=== PATIENT | female | born 1960 | race Caucasian/White ===

== ENCOUNTER 2017-12-05 14:17 | Outpatient (CLI) | payer BC, SELFPAY ==
[2017-12-05 15:42] LABS: Lithium 1.09 mmol/L (0.60-1.20)
[2017-12-05 21:22] LABS: T3,Free 2.3 pg/ml (2.8-5.3)
== END 2017-12-05 14:18 ==
PROVIDERS: PCP Family Medicine; Visit Provider Family Medicine
DX: F31.9 Bipolar disorder, unspecified (principal); E03.9 Hypothyroidism, unspecified; Z51.81 Encounter for therapeutic drug level monitoring
CPT/HCPCS: 36415; 80178; 84481

== ENCOUNTER 2018-04-17 00:47 | Outpatient (CLI) | payer BC, SELFPAY ==
[2018-04-17 12:38] LABS: Lithium 1.07 mmol/L (0.60-1.20)
== END 2018-04-17 01:07 ==
PROVIDERS: PCP Family Medicine; Visit Provider Family Medicine
DX: F31.9 Bipolar disorder, unspecified (principal); Z51.81 Encounter for therapeutic drug level monitoring; Z79.899 Other long term (current) drug therapy
CPT/HCPCS: 36415; 80178

== ENCOUNTER 2018-06-22 11:49 | Inpatient (IN) | payer BC, SELFPAY ==
[2018-06-22] VITALS (17 sets, daily range): BP systolic 149–199; BP diastolic 74–127; PULSE 52–89; RESP 11–35; TEMP 36.5–37.2; O2SAT 95–100
--- NOTE | 2018-06-22 12:41 | ED.GENADUL_ITS ---
Discharge Plan Disposition Patient Disposition: [facility] INPATIENT Condition: Fair Discharge Details Chief Complaint: AMS/LOC Clinical Impression: Speech problem, Altered mental status Reason For Visit: trouble talking 24 hours Primary Care Provider: Norberto Mcnair ED Provider: Scott Coleman [place] Meds and New Rx's Prescriptions: No Action Otezla 30 mg tablet 30 mg PO BID RF: 0 amiloride 5 mg tablet 5 mg PO DAILY Qty: 90 RF: 3 clonazepam 0.5 mg tablet 0.5 mg PO HS Qty: 30 RF: 2 indomethacin 50 mg capsule 50 mg PO TID PRN (Reason: gout attack) Qty: 30 RF: 0 oxybutynin chloride 10 mg tablet extended release 24hr 10 mg PO DAILY Qty: 90 RF: 4 cyanocobalamin (vitamin B-12) [Vitamin B-12] 1,000 MCG tablet extended release 1,000 mcg PO 3X/WEEK Qty: 36 RF: 4 red yeast rice 600 MG tablet 1 tab PO BID RF: 0 celecoxib [Celebrex] 100 MG capsule 100 mg PO BID Qty: 180 RF: 0 senna 8.6 MG capsule 1 tab-cap PO BID PRNRF: 0 docusate sodium [Colace] 100 MG capsule 1 cap PO DAILY PRNRF: 0 ibuprofen [Motrin IB] 200 MG tablet 3 tab PO TID PRNRF: 0 triamcinolone acetonide 15 GM cream Topical BID Qty: 30 RF: 3 fluocinonide 60 GM ointment Topical BID Qty: 60 RF: 4 ziprasidone HCl 20 MG capsule 20 mg PO DAILY Qty: 90 RF: 4 mirtazapine 7.5 MG tablet 2 tab PO HS Qty: 180 RF: 4 levothyroxine 175 MCG tablet 175 mcg PO as directed Qty: 90 RF: 3 lithium carbonate 600 MG capsule 600 mg PO DAILY Qty: 90 RF: 4 lithium carbonate 300 MG capsule 300 mg PO DAILY Qty: 90 RF: 4 levothyroxine 200 MCG tablet 200 mcg PO As Dirrected Qty: 36 RF: 4 ranitidine HCl 150 MG capsule 150 mg PO BID Qty: 180 RF: 4 venlafaxine 75 MG capsule,extended release 24hr 75 mg PO DAILY Qty: 90 RF: 3 venlafaxine 150 MG capsule,extended release 24hr 150 mg PO DAILY Qty: 90 RF: 4 calcitriol [Rocaltrol] 0.25 mcg capsule 0.25 mcg PO 3 x wkly Qty: 12 RF: 4 methylphenidate HCl 20 mg tablet 20 mg PO DAILY MDD 20 mg Qty: 30 RF: 0 Medical Decision Making Patient presenting with complaints of speech problem and confusion. Currently in the ED she is nonfocal, seems a little slow, is not completely fluent with speech but does not have clear-cut a aphasia or dysarthria. I have given her a NIH score of 4. She was not able to answer both questions and got her age wrong. She has slight weakness in both legs and drifts but does not hit the bed. She has mild speech difficulty. I do not really find anything focal. Workup initiated including head CT for stroke protocol, EKG, laboratory studies including ammonia, TSH, lithium level. Phone call to discuss with Dr. Manley placed. Patient's CT head is negative. Laboratory studies are for the most part unremarkable. CBC is normal. Chemistries are unremarkable. Creatinine slightly up at 1.24. Ammonia is negative. Troponin is negative. TSH is a little low. Urinalysis negative for infection. [place] a little high at 1.43 with high normal being 1.2. Case is discussed with neurology. Discussed presentation, findings, plan which she is in agreement with. Patient given full dose aspirin with negative head CT. CTA of the head and neck ordered to evaluate for possible spasm. Will need admission for MRI of the brain and ECHO of the heart. Case discussed with hospitalist. Will obtain CTA of head and neck here and hold for results prior to admitting. CTA is negative for any visualized disease. Patient has remained stable and unchanged here. Patient admitted to telemetry bed for further workup of symptoms. Lab Data Lab results reviewed: Yes I reviewed the patient's lab results. ECG Data Attestation: I personally reviewed and interpreted this ECG (s) as follows: Prior ECG tracings: not available for review Interpretation: Sinus bradycardia at 58. Normal axis and intervals. Inverted T waves in [address] No acute ST elevation or depression noted elsewhere. HPI General Mode of arrival: ambulatory . Date/Time Provider Initiated Documentation: 06/22/18 12:11 . Limitations to Documentation: no limitations . Information obtained by: patient . HPI Narrative: Patient presents to the ED with complaints of difficulty speaking. She noticed she was having trouble with her words yesterday. She also has felt a little more confused than usual. Symptoms have been intermittent. Today at work she was having difficulty typing because the words that were going up on the screen were not the words that she was trying to get out. This is what is been going on with her speech as well. She has not noticed any headache, visual change, weakness, numbness, dizziness, gait disturbance. She has had some left upper extremity pain that limits her range of motion for the last few weeks. There is no known trauma related with this. It has been present for at least 2-3 weeks now. She has no fever, chest pain, cough. She had a coworker bring her here for evaluation for the speech problems. Related Data Home Medications Medication Instructions Recorded Confirmed cyanocobalamin (vitamin B-12) 1,000 mcg PO 3X/WEEK #36 08/21/12 06/22/18 [B-12] red yeast rice 1 tab PO BID 08/21/12 06/22/18 celecoxib [Celebrex] 100 mg PO BID #180 tab-cap 07/21/13 06/22/18 senna 1 tab-cap PO BID PRN tab-cap 03/06/15 06/22/18 docusate sodium [Colace] 1 cap PO DAILY PRN 03/07/15 06/22/18 ibuprofen [Motrin IB] 3 tab PO TID PRN 06/07/15 06/22/18 triamcinolone acetonide 0 TOPICAL BID #30 g 09/07/15 05/12/18 fluocinonide 0 TOPICAL BID #60 g 11/28/15 05/12/18 ziprasidone HCl 20 mg PO DAILY #90 cap 07/25/17 06/22/18 mirtazapine 2 tab PO HS #180 tab 07/29/17 06/22/18 levothyroxine 175 mcg PO as directed #90 tab-cap 09/19/17 06/22/18 levothyroxine 200 mcg PO As Dirrected #36 tab-cap 10/03/17 06/22/18 lithium carbonate 300 mg PO DAILY #90 tab-cap 10/03/17 06/22/18 lithium carbonate 600 mg PO DAILY #90 cap 10/03/17 06/22/18 ranitidine HCl 150 mg PO BID #180 tab-cap 10/03/17 06/22/18 venlafaxine 75 mg PO DAILY #90 tab-cap 11/19/17 06/22/18 venlafaxine 150 mg PO DAILY #90 tab-cap 11/19/17 06/22/18 indomethacin 50 mg capsule 50 mg PO TID PRN #30 cap 01/01/18 06/22/18 oxybutynin chloride ER 10 mg 10 mg PO DAILY #90 tab 01/01/18 06/22/18 tablet,extended release 24 hr calcitriol 0.25 mcg capsule 0.25 mcg PO 3 x wkly #12 tab-cap 03/19/18 06/22/18 amiloride 5 mg tablet 5 mg PO DAILY #90 tab-cap 05/12/18 06/22/18 apremilast 30 mg tablet 30 mg PO BID 05/12/18 06/22/18 clonazepam 0.5 mg tablet 0.5 mg PO HS #30 tab-cap 05/12/18 06/22/18 methylphenidate 20 mg tablet 20 mg PO DAILY #30 tab-cap MDD 20 05/25/18 06/22/18 mg Previous Rx's Medication Instructions Recorded ziprasidone HCl 20 mg PO DAILY #90 cap 07/25/17 mirtazapine 2 tab PO HS #180 tab 07/29/17 levothyroxine 175 mcg PO as directed #90 tab-cap 09/19/17 levothyroxine 200 mcg PO As Dirrected #36 tab-cap 10/03/17 lithium carbonate 300 mg PO DAILY #90 tab-cap 10/03/17 lithium carbonate 600 mg PO DAILY #90 cap 10/03/17 ranitidine HCl 150 mg PO BID #180 tab-cap 10/03/17 venlafaxine 75 mg PO DAILY #90 tab-cap 11/19/17 venlafaxine 150 mg PO DAILY #90 tab-cap 11/19/17 indomethacin 50 mg capsule 50 mg PO TID PRN #30 cap 01/01/18 oxybutynin chloride ER 10 mg 10 mg PO DAILY #90 tab 01/01/18 tablet,extended release 24 hr calcitriol 0.25 mcg capsule 0.25 mcg PO 3 x wkly #12 tab-cap 03/19/18 amiloride 5 mg tablet 5 mg PO DAILY #90 tab-cap 05/12/18 clonazepam 0.5 mg tablet 0.5 mg PO HS #30 tab-cap 05/12/18 methylphenidate 20 mg tablet 20 mg PO DAILY #30 tab-cap MDD 20 05/25/18 mg Allergies Allergy/AdvReac Type Severity Reaction Status Date / Time Cephalosporins Allergy Unknown Unverified 06/22/18 13:24 haloperidol Allergy Unknown Unverified 06/22/18 13:24 indomethacin AdvReac Intermediate dizziness Unverified 06/22/18 13:24 quetiapine AdvReac Intermediate RLS Unverified 06/22/18 13:24 Butyrophenones AdvReac Unknown Unverified 06/22/18 13:24 thioridazine AdvReac Unknown Unverified 06/22/18 13:24 General Stated Complaint: AMS/LOC SONJA: 2 Review of Systems Constitutional Denies fever(s), Denies headache(s), Denies lethargy and Denies weakness Eyes Denies change in vision, Denies loss of vision and Denies eye pain ENT Denies vertigo, Denies dizziness, Denies otalgia, Denies facial pain, Denies headache(s) and Denies neck pain Cardiovascular Denies chest pain, Denies diaphoresis, Denies syncope, Reports leg edema and Denies dyspnea Respiratory Denies chest congestion, Denies cough and Denies dyspnea Gastrointestinal Denies abdominal pain, Denies diarrhea, Denies nausea and Denies vomiting Genitourinary Denies dysuria and Denies pelvic pain Musculoskeletal Denies abnormal gait, Denies back pain, Denies neck pain, Denies numbness and Denies tingling Integumentary/Breasts Denies rash Neurologic Denies abnormal movements, Reports abnormal speech, Denies abnormal gait, Reports confusion, Denies vertigo, Denies dizziness, Denies syncope, Denies headache(s), Denies lack of coordination, Denies focal weakness, Denies loss of vision, Denies numbness, Denies other visual disturbances, Denies sensory deficit, Denies tingling, Denies paresthesias and Denies weakness Psychiatric Reports confusion [facility] Medical History Venous insufficiency of both lower extremities (Chronic) Spinal stenosis (Chronic) Psoriasis (Chronic 03/13/17) Obesity (Chronic) Hypothyroidism (acquired) (Chronic) Hyperlipidemia (Chronic 12/02/12) Hiatal hernia (Chronic) Gout (Chronic 02/17/13) Essential hypertension (Chronic 02/17/13) Chronic renal impairment (Chronic 02/17/13) Bipolar I disorder (Chronic) Surgical History Abdominal hysterectomy (~2002) Arthroplasty of knee Bilateral salpingectomy with oophorectomy (~2002) Cholecystectomy Dilation and curettage EXOSTECTOMY MASTOIDECTOMY Open Carpal Tunnel release SALIVARY SURGERY VOCAL CORD SURGERY Family History Mother Diabetes Essential hypertension Depression Heart disease Hyperlipidemia Stroke Father Essential hypertension Heart disease Hyperlipidemia Sister Depression Brother Depression Brother No problems noted. Social History Smoking/Tobacco Use Status: Former Tobacco Use Alcohol Intake: current Alcohol Intake frequency: 0-2 drinks per day Alcohol type: beer Drug use: Never Substance use type: does not use Household members: other Details: SELF Pets and animals: Yes Pets and animals: dog(s) Frequency: 1-2 times per week Lian/Christianity: [employer] Special lian needs: No Do you feel safe at home: Yes Do you feel safe in your relationship?: Yes Exam Const General: cooperative, comfortable and no acute distress Orientation: alert and oriented x3 HENMT Head: normocephalic and atraumatic Ears: external ears normal Face and sinus: normal facial exam Eyes Pupils: PERRL EOM: EOM intact bilaterally Neck Neck: trachea midline and supple Resp Effort & Inspection: normal respiratory effort Auscultation: clear to auscultation bilaterally Cardio Rate: regular rate Rhythm: regular rhythm Heart Sounds: S1 normal and S2 normal GI Inspection: normal to inspection Palpation: soft, not firm and nontender Skin Rashes: no rashes Neuro General: alert, oriented x3, tone normal, moves all extremities, no focal motor deficits and CN's II-XI intact bilaterally Speech: abnormal speech (some word finding problem; not completely fluent) Gait: other (limps) Motor: tremor (mild hand tremor bilaterally) Sensory Exam: no sensory deficits noted Coordination: [id number] test normal and [id number] test normal Extrem General: no calf tenderness and pedal edema Course Vital Signs Temperature 97.7 F 06/22/18 12:09 Temperature 97.7 F 06/22/18 12:09 Temperature Source Temporal Artery Scan 06/22/18 12:09 Oxygen Delivery Method Room Air 06/22/18 12:09 Oxygen Flow Rate 0 06/22/18 12:09 Pain Level 6 06/22/18 12:09
--- NOTE | 2018-06-22 12:43 | DI.CT_ITS ---
SYMPTOMS/DIAGNOSIS: TROUBLE WITH SPEECH CT BRAIN: Noncontrast. No priors. There is normal roberts/white matter differentiation. The ventricles and sulci are consistent with the patient's age. No acute infarct, midline shift, mass effect or hemorrhage is seen. The ventricles are intact. The basilar cisterns are patent. The visualized paranasal sinuses are clear. The mastoid air cells are well pneumatized. There do appear to be post surgical changes involving the right mastoid air cells. The calvarium is intact. IMPRESSION: No acute intracranial process. Follow up as clinically appropriate. The findings were discussed with Dr. Coleman of the emergency department on the date of the examination.
[2018-06-22 13:40] LABS: Bilirubin Negative (Negative); Blood Negative (Negative); Clarity Clear; Glucose Negative (Negative); Ketones Negative (Negative); Leukocyte Esterase Negative (Negative); Nitrite Negative (Negative); Urobilinogen 0.2 EU/dL (Up TO 0.2)
--- NOTE | 2018-06-22 13:45 | DI.CT_ITS ---
SYMPTOMS/DIAGNOSIS: SPEECH PROBLEMS CTA OF THE HEAD AND NECK: CT angiography was performed with multi slice acquisition and multi planar and 3D reconstruction. CT ANGIOGRAPHY OF THE NECK: The visualized thoracic aorta is unremarkable. The common carotid arteries are unremarkable. No evidence of occlusion, dissection or significant stenosis. There is mild atherosclerosis seen at the proximal internal carotid arteries bilaterally. No occlusion, dissection or significant stenosis is visualized. The external carotid arteries are unremarkable without evidence of occlusion or significant stenosis. The vertebral arteries are unremarkable. No evidence of occlusion or significant stenosis is seen. No acute abnormality is seen in the soft tissues. There are moderate degenerative changes seen throughout the cervical spine with varying degrees of disc space, endplate sclerosis and osteophytosis. The visualized paranasal sinuses are clear. IMPRESSION: No acute cervical arterial abnormality. CT ANGIOGRAPHY OF THE HEAD: There is mild atherosclerosis seen in the cavernous portion of the internal carotid arteries but no evidence of occlusion, stenosis or aneurysm is seen. The anterior cerebral arteries are unremarkable without evidence of aneurysm, occlusion or significant stenosis. The middle cerebral arteries are unremarkable without evidence of aneurysm, occlusion or significant stenosis. The posterior cerebral arteries are unremarkable without evidence of occlusion, aneurysm or significant stenosis. The distal vertebral arteries and basilar artery are unremarkable without evidence of dissection, occlusion, aneurysm or significant stenosis. IMPRESSION: No evidence of arterial abnormality in the brain. The findings were discussed with the emergency department on the date of the examination.
[2018-06-22] MEDS: Normal Saline 1,000 ML 1000 ML IV (13:50)
[2018-06-22 14:03] LABS: Abs Immature Grans 0.01 k/cumm (0.0-0.09); Absolute Basophil Count 0.01 k/cumm (0.0-0.2); Absolute Eosinophil Count 0.18 k/cumm (0.0-0.7); Absolute Lymphocyte Count 0.92 k/cumm (1.2-3.4); Absolute Monocyte Count 0.28 k/cumm (0.11-0.7); Absolute Neutrophil Count 4.63 k/cumm (1.2-6.7); Basophils % 0.2; HCT 36.5 % (36.0-46.0); HGB 12.2 g/dL (12.0-15.5); Immature Grans % 0.2; Lymphocytes % 15.3; Mean Corp. HGB Concentration 33.4 g/dL (32.0-36.0); Mean Corpuscular Volume 92.6 fL (80-95); Mean Platelet Volume 10.2 fL (8.0-11.0); Monocytes % 4.6; Neutrophils % 76.7; Platelet Count 205 x1000/uL (130-400); RBC 3.94 m/cumm (4.00-5.20); RBC Distribution Width 13.6 % (11.7-14.6); White Blood Cell Count 6.03 k/cumm (4.4-10.8)
[2018-06-22 14:06] LABS: Bacteria Rare HPF (Negative); C & S Indicated? No; Casts Negative LPF (Negative); Crystals Negative HPF (Negative); Epithelial Cells Many HPF (Negative); Mucus Negative (Negative); RBC Negative (0-2)
[2018-06-22] MEDS: Aspirin 81 MG CHEW 324 MG CH (14:07)
[2018-06-22 14:21] LABS: Ammonia < 10 umol/L (11-32)
[2018-06-22 14:45] LABS: ALT 27 U/L (12-78); AST 22 U/L (15-37); Albumin 3.2 g/dL (3.4-5.0); Alkaline Phosphatase 120 U/L (46-116); Anion Gap 4.8 mmol/L (3-11); BUN 16 mg/dL (7-18); Bilirubin, Total 0.3 mg/dL (0.2-1.0); CO2 26.2 mmol/L (21.0-32.0); CREATININE 1.24 mg/dL (0.55-1.02); Calcium 9.1 mg/dL (8.5-10.1); Chloride 106 mmol/L (98-107); Estimated GFR 44.27 (mL/min/1.73m2); Glucose 100 mg/dL (70-100); Magnesium 2.2 mg/dL (1.8-2.4); Potassium 4.2 mmol/L (3.5-5.1); Sodium 137 mmol/L (136-145); TSH 0.28 uIU/mL (0.358-3.74); Total Protein 7.1 g/dL (6.4-8.2)
[2018-06-22 14:48] LABS: Troponin I < 0.02 ng/mL (0.00-0.06)
--- NOTE | 2018-06-22 15:13 | PDOC.ERCMPRO ---
Care Management Progress Note 06/22-Carmen requested assistance with calling her friends, Jo Ann [phone] Meka [phone]. Carmen wanted to let her friends know she was being admitted. This CM tried Alayna German but she was not at home. This CM then was able to reach out to Meka who was able to speak with Carmen on the phone.
[2018-06-22 15:18] LABS: Lithium 1.43 mmol/L (0.60-1.20)
[2018-06-22] MEDS: Omnipaque 350 MG/ML 100 ML BTL IV (15:38)
[2018-06-22] MEDS: Enoxaparin 40 MG/0.4 ML SYR SC (17:57)
--- NOTE | 2018-06-22 18:55 | W.PM.HP.N ---
Date of service: 06/22/18 Time of Service: 18:55 Assessment and Plan (1) Expressive aphasia: Current visit: Yes Status: Acute Symptoms of aphasia, with reported difficulty in expressing words either review of speech or by typing. Patient is also noted to be slightly altered from her normal mental status, and while she is very appropriate does have trouble with recalling such things as her age, birthdate, date and year. She also understands that this is not her norm. While there are no focal deficits, there is obvious concern for an acute CVA/TIA. Differential otherwise for her altered mental status is rather broad, and will be explored pending workup of patient's current symptoms. Ms. Portillo reports no daily aspirin use - will initiate once a day low-dose aspirin, as well as high potency statin therapy. CT of the head and CT angiogram of the head and neck are negative for any acute findings - will follow up with an MRI of the brain (unfortunately following admission it was announced that the MRI machine will be under service tomorrow and likely unavailable for imaging). Will allow for some degree of permissive hypertension. Check echocardiogram, and maintain on telemetry as well. We will also check a.m. hemoglobin A1c and fasting lipids. Although lithium level is mildly elevated, the patient's symptoms do not appear typical for lithium toxicity. Regardless, her lithium will be on hold with repeat levels in the morning. EKG was slightly abnormal, but with initial troponin undetectable. Will repeat troponin following admission, as well as tomorrow morning to completely rule out for an ACS with serial cardiac biomarkers. Neurology consulted, and input is appreciated. (2) Bipolar I disorder: Current visit: Yes Status: Chronic [place] on hold as above, but will continue the remainder of the patient's psychiatric regimen, including mirtazapine, clonazepam, venlafaxine, and Ziprasidone. Monitor lithium levels closely, and reinitiate when appropriate. (3) Essential hypertension: Current visit: Yes Status: Chronic (4) Hyperlipidemia: Current visit: Yes Status: Chronic (5) Hypothyroidism (acquired): Current visit: Yes Status: Chronic TSH currently low, with prior value grossly elevated in October 2017. Will decrease dose, and recommend repeat TSH in the near future as an outpatient. (6) DVT prophylaxis: Current visit: Yes Status: Acute SC Lovenox. History of Present Illness Chief Complaint: Aphasia Narrative: Very pleasant 58-year-old woman with past medical history significant for HTN, dyslipidemia, and obesity, being admitted from [facility] Emergency Department on 06/22/2018 with complaints of aphasia. Ms. Portillo has a prior history of HTN, dyslipidemia, obesity, gout, and psoriasis. She also has a prior history of hypothyroidism, with a current TSH that appears to be low, as well as bipolar disorder chronically maintained on lithium, spinal stenosis, OAB, and venous insufficiency. The patient presented to the ED today with complaints of new onset aphasia. She reports waking up yesterday feeling tired, and stayed in bed for a few more hours after that which is unusual for her. She reportedly did not 'feel good' for the remainder of the day, but was not really sure of the reason. However, by the time she went to bed she was feeling reasonably well, and awoke this morning feeling okay. 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 However she then noticed that she could not say words that she was thinking of correctly, and states that others noted the same. She also noticed incorrect typing, reported as being unable to type what she was thinking in a correct manner. This prompted her to present to the emergency department for further evaluation. Workup in the ED was fairly unremarkable, with essentially normal lab work with the exception of a mildly low TSH of 0.28, and a minimal elevation in lithium levels at 1.43. CT of the head, followed by CT angiogram of the head and neck were both interpreted as without evidence of acute abnormality. EKG showed NSR with TW inversions in I/AVL and PRWP, but also with a negative troponin. Mrs. Castillo was also noted to be slightly confused although very appropriate, unable to verify the exact date, her birthdate, or the year. Suspicion was for potential CVA/TIA, and the patient was referred for admission for further evaluation and treatment. Review of Systems Review of Systems All systems reviewed & are unremarkable except as noted in HPI and below and Unobtainable due to (Worsening tremors over the last 2 weeks) [facility] Medical History Venous insufficiency of both lower extremities (Chronic) Spinal stenosis (Chronic) Psoriasis (Chronic 03/13/17) Obesity (Chronic) Hypothyroidism (acquired) (Chronic) Hyperlipidemia (Chronic 12/02/12) Hiatal hernia (Chronic) Gout (Chronic 02/17/13) Essential hypertension (Chronic 02/17/13) Chronic renal impairment (Chronic 02/17/13) Bipolar I disorder (Chronic) Surgical History Abdominal hysterectomy (~2002) Arthroplasty of knee Bilateral salpingectomy with oophorectomy (~2002) Cholecystectomy Dilation and curettage EXOSTECTOMY MASTOIDECTOMY Open Carpal Tunnel release SALIVARY SURGERY VOCAL CORD SURGERY Family History Mother Diabetes Essential hypertension Depression Heart disease Hyperlipidemia Stroke Father Essential hypertension Heart disease Hyperlipidemia Sister Depression Brother Depression Brother No problems noted. Social History Smoking/Tobacco Use Status: Former Tobacco Use Alcohol Intake: current Alcohol Intake frequency: 0-2 drinks per day Alcohol type: beer Drug use: Never Substance use type: does not use Household members: other Details: SELF Pets and animals: Yes Pets and animals: dog(s) Frequency: 1-2 times per week Lian/Anabaptism: Cheondoism Special lian needs: No Do you feel safe at home: Yes Do you feel safe in your relationship?: Yes Meds Home Medications Medication Instructions Recorded Confirmed Type cyanocobalamin (vitamin B-12) 1,000 mcg PO 3X/WEEK #36 08/21/12 06/22/18 History [B-12] red yeast rice 1 tab PO BID 08/21/12 06/22/18 History celecoxib [Celebrex] 100 mg PO BID #180 tab-cap 07/21/13 06/22/18 History senna 1 tab-cap PO BID PRN tab-cap 03/06/15 06/22/18 History docusate sodium [Colace] 1 cap PO DAILY PRN 03/07/15 06/22/18 History ibuprofen [Motrin IB] 3 tab PO TID PRN 06/07/15 06/22/18 History triamcinolone acetonide 0 TOPICAL BID #30 g 09/07/15 05/12/18 History fluocinonide 0 TOPICAL BID #60 g 11/28/15 05/12/18 History ziprasidone HCl 20 mg PO DAILY #90 cap 07/25/17 06/22/18 Rx mirtazapine 2 tab PO HS #180 tab 07/29/17 06/22/18 Rx levothyroxine 175 mcg PO as directed #90 tab-cap 09/19/17 06/22/18 Rx levothyroxine 200 mcg PO As Dirrected #36 tab-cap 10/03/17 06/22/18 Rx lithium carbonate 300 mg PO DAILY #90 tab-cap 10/03/17 06/22/18 Rx lithium carbonate 600 mg PO DAILY #90 cap 10/03/17 06/22/18 Rx ranitidine HCl 150 mg PO BID #180 tab-cap 10/03/17 06/22/18 Rx venlafaxine 75 mg PO DAILY #90 tab-cap 11/19/17 06/22/18 Rx venlafaxine 150 mg PO DAILY #90 tab-cap 11/19/17 06/22/18 Rx indomethacin 50 mg capsule 50 mg PO TID PRN #30 cap 01/01/18 06/22/18 Rx oxybutynin chloride ER 10 mg 10 mg PO DAILY #90 tab 01/01/18 06/22/18 Rx tablet,extended release 24 hr calcitriol 0.25 mcg capsule 0.25 mcg PO 3 x wkly #12 tab-cap 03/19/18 06/22/18 Rx amiloride 5 mg tablet 5 mg PO DAILY #90 tab-cap 05/12/18 06/22/18 Rx apremilast 30 mg tablet 30 mg PO BID 05/12/18 06/22/18 History clonazepam 0.5 mg tablet 0.5 mg PO HS #30 tab-cap 05/12/18 06/22/18 Rx methylphenidate 20 mg tablet 20 mg PO DAILY #30 tab-cap MDD 20 05/25/18 06/22/18 Rx mg Allergies Allergy/AdvReac Type Severity Reaction Status Date / Time Cephalosporins Allergy Unknown Unverified 06/22/18 13:24 haloperidol Allergy Unknown Unverified 06/22/18 13:24 indomethacin AdvReac Intermediate dizziness Unverified 06/22/18 13:24 quetiapine AdvReac Intermediate RLS Unverified 06/22/18 13:24 Butyrophenones AdvReac Unknown Unverified 06/22/18 13:24 thioridazine AdvReac Unknown Unverified 06/22/18 13:24 Exam Narrative Exam Narrative: General: Patient appears comfortable, AAOX2, NAD Neck: Supple CV: Regular, nontachycardic, S1S2, No rubs, murmurs, or gallops. Pulmonary: Clear to auscultation bilaterally, no crackles, wheezing, or rhonchi Abdomen: + Bowel Sounds, soft, nontender, nondistended Vascular: No lower extremity edema Neurologic: CN II-XII grossly intact. No focal deficits. Psych: Normal mood and affect. Results Imaging Additional studies: Exam(s) a CT:CT head - stroke protocol SYMPTOMS/DIAGNOSIS: TROUBLE WITH SPEECH CT BRAIN: Noncontrast. No priors. There is normal roberts/white matter differentiation. The ventricles and sulci are consistent with the patient's age. No acute infarct, midline shift, mass effect or hemorrhage is seen. The ventricles are intact. The basilar cisterns are patent. The visualized paranasal sinuses are clear. The mastoid air cells are well pneumatized. There do appear to be post surgical changes involving the right mastoid air cells. The calvarium is intact. IMPRESSION: No acute intracranial process. Follow up as clinically appropriate. Exam(s) a CT:CT brain & neck CTA SYMPTOMS/DIAGNOSIS: SPEECH PROBLEMS CTA OF THE HEAD AND NECK: CT angiography was performed with multi slice acquisition and multi planar and 3D reconstruction. CT ANGIOGRAPHY OF THE NECK: The visualized thoracic aorta is unremarkable. The common carotid arteries are unremarkable. No evidence of occlusion, dissection or significant stenosis. There is mild atherosclerosis seen at the proximal internal carotid arteries bilaterally. No occlusion, dissection or significant stenosis is visualized. The external carotid arteries are unremarkable without evidence of occlusion or significant stenosis. The vertebral arteries are unremarkable. No evidence of occlusion or significant stenosis is seen. No acute abnormality is seen in the soft tissues. There are moderate degenerative changes seen throughout the cervical spine with varying degrees of disc space, endplate sclerosis and osteophytosis. The visualized paranasal sinuses are clear. IMPRESSION: No acute cervical arterial abnormality. CT ANGIOGRAPHY OF THE HEAD: There is mild atherosclerosis seen in the cavernous portion of the internal carotid arteries but no evidence of occlusion, stenosis or aneurysm is seen. The anterior cerebral arteries are unremarkable without evidence of aneurysm, occlusion or significant stenosis. The middle cerebral arteries are unremarkable without evidence of aneurysm, occlusion or significant stenosis. The posterior cerebral arteries are unremarkable without evidence of occlusion, aneurysm or significant stenosis. The distal vertebral arteries and basilar artery are unremarkable without evidence of dissection, occlusion, aneurysm or significant stenosis. IMPRESSION: No evidence of arterial abnormality in the brain. Labs : 06/22/18 13:50 06/22/18 13:50 Laboratory Results - last 24 hr 06/22/18 06/22/18 06/22/18 13:35 13:50 13:50 WBC RBC Hgb Hct MCV MCH MCHC RDW Plt Count MPV Immature Gran % Neutrophils % Lymphocytes % Monocytes % Eosinophils % Basophils % Absolute Neutrophils Absolute Lymphocytes Absolute Monocytes Absolute Eosinophils Absolute Basophils Sodium 137 Potassium 4.2 Chloride 106 Carbon Dioxide 26.2 Anion Gap 4.8 BUN 16 Creatinine 1.24 H Estimated GFR/1.73 m2 44.27 Glucose 100 Calcium 9.1 Magnesium 2.2 Total Bilirubin 0.3 AST 22 ALT 27 Alkaline Phosphatase 120 H Ammonia < 10 L Troponin I < 0.02 Total Protein 7.1 Albumin 3.2 L TSH 0.28 L Urine Color Straw Urine Clarity Clear Urine pH 7.0 Ur Specific [place] 1.010 Urine Protein 30 H Urine Ketones Negative Urine Blood Negative Urine Nitrite Negative Urine Bilirubin Negative Urine Urobilinogen 0.2 Ur Leukocyte Esterase Negative Urine RBC Negative Urine WBC 3-5 Ur Epithelial Cells Many Urine Crystals Negative Urine Bacteria Rare Urine Casts Negative Urine Mucus Negative Ur Culture Indicated? No Urine Glucose Negative [place] 06/22/18 06/22/18 06/22/18 13:50 13:50 14:50 WBC 6.03 RBC 3.94 L Hgb 12.2 Hct 36.5 MCV 92.6 MCH 31.0 MCHC 33.4 RDW 13.6 Plt Count 205 MPV 10.2 Immature Gran % 0.2 Neutrophils % 76.7 Lymphocytes % 15.3 Monocytes % 4.6 Eosinophils % 3.0 Basophils % 0.2 Absolute Neutrophils 4.63 Absolute Lymphocytes 0.92 L Absolute Monocytes 0.28 Absolute Eosinophils 0.18 Absolute Basophils 0.01 Sodium Potassium Chloride Carbon Dioxide Anion Gap BUN Creatinine Estimated GFR/1.73 m2 Glucose Calcium Magnesium Total Bilirubin AST ALT Alkaline Phosphatase Ammonia Troponin I Total Protein Albumin TSH Urine Color Urine Clarity Urine pH Ur Specific [place] Urine Protein Urine Ketones Urine Blood Urine Nitrite Urine Bilirubin Urine Urobilinogen Ur Leukocyte Esterase Urine RBC Urine WBC Ur Epithelial Cells Urine Crystals Urine Bacteria Urine Casts Urine Mucus Ur Culture Indicated? Urine Glucose [place] Cancelled 1.43 H Last Vital Signs Temp 37.2 C 06/22/18 17:28 Pulse 56 L 06/22/18 17:28 Resp 17 06/22/18 17:28 BP 173/76 H 06/22/18 17:28 Pulse Ox 95 06/22/18 17:28
[2018-06-22] MEDS: Atorvastatin 40 MG TAB PO (20:12)
[2018-06-22 21:07] LABS: Troponin I < 0.02 ng/mL (0.00-0.06)
[2018-06-22] MEDS: clonazePAM 0.5 MG TAB PO (22:00)
[2018-06-22] MEDS: Calcitriol 0.25 MCG CAP PO (22:00)
[2018-06-22] MEDS: Mirtazapine 15 MG TAB PO (22:00)
[2018-06-23] MEDS: Acetaminophen 325 MG TAB PO ×3 (01:23→22:57)
[2018-06-23] MEDS: Levothyroxine 175 MCG TAB PO (06:01)
[2018-06-23 07:36] VITALS: PULSE 51
[2018-06-23 07:38] LABS: Abs Immature Grans 0.01 k/cumm (0.0-0.09); Absolute Basophil Count 0.01 k/cumm (0.0-0.2); Absolute Eosinophil Count 0.19 k/cumm (0.0-0.7); Absolute Lymphocyte Count 1.15 k/cumm (1.2-3.4); Absolute Monocyte Count 0.26 k/cumm (0.11-0.7); Absolute Neutrophil Count 4.39 k/cumm (1.2-6.7); Basophils % 0.2; Eosinophils % 3.2; HCT 37.8 % (36.0-46.0); HGB 12.4 g/dL (12.0-15.5); Immature Grans % 0.2; Lymphocytes % 19.1; Mean Corp. HGB Concentration 32.8 g/dL (32.0-36.0); Mean Corpuscular Hemoglobin 30.5 pg (27.0-33.0); Mean Corpuscular Volume 92.9 fL (80-95); Monocytes % 4.3; Platelet Count 215 x1000/uL (130-400); RBC 4.07 m/cumm (4.00-5.20); RBC Distribution Width 13.8 % (11.7-14.6); White Blood Cell Count 6.01 k/cumm (4.4-10.8)
[2018-06-23 07:53] VITALS: BP 158/85; BP 183/94; PULSE 54; RESP 18; TEMP 36.4; O2SAT 100
[2018-06-23 07:53] LABS: Anion Gap 8.8 mmol/L (3-11); BUN 17 mg/dL (7-18); CO2 24.2 mmol/L (21.0-32.0); CREATININE 1.27 mg/dL (0.55-1.02); Calcium 9.6 mg/dL (8.5-10.1); Chloride 108 mmol/L (98-107); Cholesterol 213 mg/dL (50-200); Estimated GFR 43.07 (mL/min/1.73m2); Glucose 109 mg/dL (70-100); HDL Cholesterol 54 mg/dL (40-60); LDL CHOLESTEROL 128 mg/dL (<100); Magnesium 2.1 mg/dL (1.8-2.4); Potassium 4.2 mmol/L (3.5-5.1); Sodium 141 mmol/L (136-145); Triglyceride 216 mg/dL (30-150); Troponin I 0.02 ng/mL (0.00-0.06)
--- NOTE | 2018-06-23 08:00 | PDOC.CMIN ---
- If Service Date Differs Date of service: 06/23/18 Time of Service: 08:00 Care Management Initial Assess REASON FOR HOSPITALIZATION:: Expressive aphasia PAST MEDICAL HISTORY/PAST SURGICAL HISTORY:: Venous insufficiency of both lower extremities (Chronic). Spinal stenosis (Chronic). Psoriasis (Chronic 03/13/17). Obesity (Chronic). Hypothyroidism (acquired) (Chronic). Hyperlipidemia (Chronic 12/02/12). Hiatal hernia (Chronic). Gout (Chronic 02/17/13). Essential hypertension (Chronic 02/17/13). Chronic renal impairment (Chronic 02/17/13). Bipolar I disorder (Chronic). Abdominal hysterectomy (~2002). Arthroplasty of knee. Bilateral salpingectomy with oophorectomy (~2002). Cholecystectomy. Dilation and curettage. EXOSTECTOMY. MASTOIDECTOMY. Open Carpal Tunnel release. SALIVARY SURGERY. VOCAL CORD SURGERY PREVIOUS FUNCTIONAL STATUS/SOCIAL/FAMILY SUPPORTS:: Carmen resides in an apartment in [place] with her dog Nat. She reports that she works for [employer] in [place] as the [employer] she enjoys. Carmen is independent at baseline, she states that she drives and manages ADL's. CURRENT FUNCTIONAL STATUS:: Currently Carmen is lying in bed watching TV when this marketing underwriter visits. She is pleasant and receptive to discussion. Carmen states that she is interested in taking a shower today. ADVANCE DIRECTIVES:: On file - Suly Kenny is agent, Alayna Morgan and Teresa Edward is alternate. Has patient been provided with information about the portal?: Yes Did the patient sign up for the portal?: No CODE STATUS:: Full Code INSURANCE COVERAGE / FINANCIAL ISSUES:: BCBS CURRENT HOME/COMMUNITY SERVICES/EQUIPMENT:: Currently Carmen has no services or medical equipment in the community. She does report that she sees Myesha Gusman for counseling in [place], and that Dr. Mcnair prescribes her medications. PRIMARY CARE PHYSICIAN:: Dr. Mcnair POTENTIAL DISCHARGE NEEDS:: F/U appointment with PCP PATIENT/FAMILY EDUCATION NEEDS:: Review DC instructions, any limitations, and ongoing DC planning discussion. Discuss 'Ask Me Three' ANTICIPATED BARRIERS TO DISCHARGE:: None identified at this time. TRANSPORTATION:: Via private vehicle with friend. PLAN:: Carmen will return home with no anticipated services once medically cleared. She will F/U with PCP and Myesha Gusman, counselor, at time of DC. Her friend will transport when ready.
[2018-06-23] MEDS: Aspirin E.C. 81 MG TABEC PO (08:06)
[2018-06-23] MEDS: Venlafaxine 37.5 MG CAPCR 75 MG PO (08:06)
[2018-06-23] MEDS: Ziprasidone 20 MG CAP PO (08:06)
[2018-06-23] MEDS: Venlafaxine 150 MG CAPCR PO (08:06)
[2018-06-23] MEDS: Oxybutynin-CR 5 MG TABCR 10 MG PO (08:06)
[2018-06-23] MEDS: Methylphenidate 10 MG TAB 20 MG PO (08:06)
[2018-06-23 08:22] LABS: Lithium 1.16 mmol/L (0.60-1.20)
--- NOTE | 2018-06-23 09:34 | INITIAL_ITS ---
- If Service Date Differs Date of service: 06/23/18 Time of Service: 08:00 Care Management Initial Assess REASON FOR HOSPITALIZATION:: Expressive aphasia PAST MEDICAL HISTORY/PAST SURGICAL HISTORY:: Venous insufficiency of both lower extremities (Chronic). Spinal stenosis (Chronic). Psoriasis (Chronic 03/13/17). Obesity (Chronic). Hypothyroidism (acquired) (Chronic). Hyperlipidemia (Chronic 12/02/12). Hiatal hernia (Chronic). Gout (Chronic 02/17/13). Essential hypertension (Chronic 02/17/13). Chronic renal impairment (Chronic 02/17/13). Bipolar I disorder (Chronic). Abdominal hysterectomy (~2002). Arthroplasty of knee. Bilateral salpingectomy with oophorectomy (~2002). Cholecystectomy. Dilation and curettage. EXOSTECTOMY. MASTOIDECTOMY. Open Carpal Tunnel release. SALIVARY SURGERY. VOCAL CORD SURGERY PREVIOUS FUNCTIONAL STATUS/SOCIAL/FAMILY SUPPORTS:: Carmen resides in an apartment in [place] with her dog Nat. She reports that she works for [employer] in [place] as the [employer] she enjoys. Carmen is independent at baseline, she states that she drives and manages ADL's. CURRENT FUNCTIONAL STATUS:: Currently Carmen is lying in bed watching TV when this telegraphic typewriter mechanic visits. She is pleasant and receptive to discussion. Carmen states that she is interested in taking a shower today. ADVANCE DIRECTIVES:: On file - Sulykarin Kenny is agent, Alayna Morgan and Teresa Edward is alternate. Has patient been provided with information about the portal?: Yes Did the patient sign up for the portal?: No CODE STATUS:: Full Code INSURANCE COVERAGE / FINANCIAL ISSUES:: BCBS CURRENT HOME/COMMUNITY SERVICES/EQUIPMENT:: Currently Carmen has no services or medical equipment in the community. She does report that she sees Myesha Gusman for counseling in [place], and that Dr. Mcnair prescribes her med ications. PRIMARY CARE PHYSICIAN:: Dr. Mcnair POTENTIAL DISCHARGE NEEDS:: F/U appointment with PCP PATIENT/FAMILY EDUCATION NEEDS:: Review DC instructions, any limitations, and ongoing DC planning discussion. Discuss 'Ask Me Three' ANTICIPATED BARRIERS TO DISCHARGE:: None identified at this time. TRANSPORTATION:: Via private vehicle with friend. PLAN:: Carmen will return home with no anticipated services once medically cleared. She will F/U with PCP and Myesha Gusman, counselor, at time of DC. Her friend will transport when ready.
[2018-06-23 11:30] VITALS: BP 150/58; PULSE 53; RESP 20; TEMP 36.4; O2SAT 98
--- NOTE | 2018-06-23 12:30 | MERGE_ITS ---
*[facility]* *[facility]* [address] [place] [address] Date of study: 06/23/2018 Transthoracic Echocardiography M-mode, complete 2D, complete spectral Doppler, and color Doppler *STUDY CONCLUSIONS* Summary: 1. Left ventricle: The cavity size was normal. Wall thickness was increased in a pattern of mild LVH. Systolic function was normal. The estimated ejection fraction was 55-60%. Wall motion was normal; there were no regional wall motion abnormalities. Doppler parameters are consistent with high ventricular filling pressure. 2. Aortic valve: Trileaflet; normal thickness leaflets. There was trivial regurgitation. 3. Aorta: There was localized, fixed, 0.4cm (thick), 0.7cm (L) atheromatous plaque in the proximal ascending aorta. 4. Mitral valve: There was mild regurgitation. 5. Right ventricle: The cavity size was normal. Wall thickness was normal. Systolic function was normal. Recommendations: Repeat echo in 6 months to re-assess atheroma. *PATIENT PRESENTATION* Height: 157.5cm ((62in) ) S/D Pressure: 158 / 85 Weight: 91.6kg ((201.6lb) ) BSA: 2.05m^2 Test start time: 12:45 PM. Test stop time: 01:35 PM. PERFORMING Unknown CONSULTING Norberto Mcnair Aydin A REFERRING Ky Cash PERFORMING [facility] CABLE SPLICING TECHNICIAN RT Davian (R)([place])NAVJOT *PROCEDURE DATA* Procedure information: The patient was identified by two identifiers. This study was interpreted by [facility]. Pertinent images and digital data are archived for permanent storage and are available for subsequent review. Comparison was made to the study of 2006. Study status: Routine. Transthoracic echocardiography. M-mode, complete 2D, complete spectral Doppler, and color Doppler. A Transthoracic Echocardiogram was performed. Scanning was performed from the parasternal, apical, subcostal, and suprasternal notch acoustic windows. Images were obtained using an [id number] cardiac ultrasound machine. Image quality was adequate. Study completion: The patient tolerated the procedure well. There were no complications. History: PMH: Altered mental status. *CARDIAC ANATOMY* Left ventricle: The cavity size was normal. Wall thickness was increased in a pattern of mild LVH. Systolic function was normal. The estimated ejection fraction was 55-60%. Wall motion was normal; there were no regional wall motion abnormalities. Findings consistent with diastolic dysfunction. Doppler parameters are consistent with high ventricular filling pressure. Aortic valve: Trileaflet; normal thickness leaflets. Mobility was not restricted. Doppler: Transvalvular velocity was within the normal range. There was no stenosis. There was trivial regurgitation. VTI ratio of LVOT to aortic valve: 0.73. Valve area (VTI): 2.5cm^2. Indexed valve area (VTI): 1.2cm^2/m^2. Peak velocity ratio of LVOT to aortic valve: 0.63. Valve area (Vmax): 2.1cm^2. Indexed valve area (Vmax): 1cm^2/m^2. Mean velocity ratio of LVOT to aortic valve: 0.53. Valve area (Vmean): 1.8cm^2. Indexed valve area (Vmean): 0.9cm^2/m^2. Mean gradient (S): 5.3mm Hg. Peak gradient (S): 10.2mm Hg. Aorta: There was localized, fixed, 0.4cm (thick), 0.7cm (L) atheromatous plaque in the proximal ascending aorta. Aortic root: The aortic root was normal in size. Ascending aorta: The ascending aorta was normal in size. Mitral valve: Mildly thickened leaflets. Mobility was not restricted. Doppler: Transvalvular velocity was within the normal range. There was no evidence for stenosis. There was mild regurgitation. Valve area by pressure half-time: 3cm^2. Indexed valve area by pressure half-time: 1.4cm^2/m^2. Peak gradient (D): 2.7mm Hg. Left atrium: The atrium was normal in size. Right ventricle: The cavity size was normal. Wall thickness was normal. Systolic function was normal. Pulmonic valve: Doppler: Transvalvular velocity was within the normal range. There was no evidence for stenosis. There was no significant regurgitation. Peak gradient (S): 6.4mm Hg. Tricuspid valve: Structurally normal valve. Doppler: Transvalvular velocity was within the normal range. There was no evidence for stenosis. There was no significant regurgitation. Pulmonary artery: Pulmonary systolic pressure was within the normal range. Right atrium: The atrium was normal in size. Pericardium: There was no pericardial effusion. Systemic veins: Inferior vena cava: Well visualized. The vessel was patent and normal in size. The respirophasic diameter changes were in the normal range (greater than or equal to 50%). Baseline ECG: Sinus bradycardia. Measurements Left ventricle Value Reference LV ID, ED, PLAX 4.9 cm 3.5 - 6.0 LV ID, ES, PLAX 3.4 cm 2.1 - 4.0 LV PW thickness, ED, PLAX 1.2 cm LV end-diastolic volume, 1-p A2C 90 ml LV ejection fraction, 1-p A2C 67 % LV end-diastolic volume, 1-p A4C 99 ml LV ejection fraction, 1-p A4C 63 % LV e', lateral 0.045 m/sec LV E/e', lateral 18 LV e', medial 0.046 m/sec LV E/e', medial 18 LV e', average 0.046 m/sec LV E/e', average 18 Ventricular septum Value Reference IVS thickness, ED, PLAX 1.0 cm LVOT Value Reference LVOT ID, A-P 2.1 cm LVOT area 3.4 cm^2 LVOT peak velocity, S 1 m/sec LVOT mean velocity, S 0.57 m/sec LVOT VTI, S 22.5 cm LVOT peak gradient, S 4 mm Hg LVOT mean gradient, S 1.6 mm Hg Stroke volume (SV), LVOT DP 76 ml Stroke index (SV/bsa), LVOT DP 37 ml/m^2 Aortic valve Value Reference Aortic valve peak velocity, S 1.6 m/sec Aortic valve mean velocity, S 1.07 m/sec Aortic valve VTI, S 31.0 cm Aortic mean gradient, S 5.3 mm Hg Aortic peak gradient, S 10.2 mm Hg VTI ratio, LVOT/AV 0.73 Aortic valve area, VTI 2.5 cm^2 Velocity ratio, peak, LVOT/AV 0.63 Aortic valve area, peak velocity 2.1 cm^2 Velocity ratio, mean, LVOT/AV 0.53 Aortic valve area, mean velocity 1.8 cm^2 Aortic valve area/bsa, mean velocity 0.9 cm^2/m^2 Aorta Value Reference Aortic root ID, ED 2.6 cm Ascending aorta ID, A-P, S 2.9 cm Left atrium Value Reference LA ID, A-P, ES 4.3 cm LA ID/bsa, A-P 2.1 cm/m^2 <=2.2 LA area, ES, A4C 22.7 cm^2 8.8 - 23.4 LA area, ES, A2C 17 cm^2 LA volume/bsa, ES, 1-p A4C 39 ml/m^2 LA volume, ES, 2-p 54 ml LA volume/bsa, ES, 2-p 26 ml/m^2 LA/aortic root ratio 1.68 Mitral valve Value Reference Mitral annulus diameter, A-P, D 0.4 cm Mitral E-wave peak velocity 0.81 m/sec Mitral A-wave peak velocity 0.81 m/sec Mitral deceleration time (H) 257 ms 150 - 230 Mitral pressure half-time 75 ms Mitral peak gradient, D 2.7 mm Hg Mitral E/A ratio, peak 1.01 Mitral valve area, PHT, DP 3 cm^2 Pulmonary veins Value Reference Pulmonary vein peak velocity, S 0.43 m/sec Pulmonary vein peak velocity, D 0.35 m/sec Pulmonary vein velocity ratio, peak, 1.25 S/D Tricuspid valve Value Reference Tricuspid regurg peak velocity 2.8 m/sec Tricuspid peak RV-RA gradient 32.2 mm Hg Right atrium Value Reference RA area, ES, A4C 14.7 cm^2 8.3 - 19.5 Pulmonic valve Value Reference Pulmonic peak gradient, S 6.4 mm Hg Legend: (L) and (H) yimi values outside specified reference range. I have personally reviewed the images and have reviewed and edited the reported findings. Electronically signed by Elia Park 06/23/2018 14:38
[2018-06-23] MEDS: Normal Saline Flush 10 ML SYR IVP (14:44)
[2018-06-23 15:00] VITALS: PULSE 56
--- NOTE | 2018-06-23 15:08 | CHAPLAIN ---
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 She told me she is waiting to have an MRI, but the MRI machine is down today, and she is waiting to be seen by the neurologist who is out sick today, so Jenny maybe be here over night again. She is worried about her dog, Nat, who usually goes to work at the [employer] with her. Fr. Young is taking care of Nat for now. Fr. Young has been in to visit Jenny, along with a couple of other friends. Jenny said she began having at trouble at work typing the words she was thinking of, and that worried her. She also had some difficulty telling me her age today.
[2018-06-23 15:56] VITALS: BP 161/81; PULSE 58; RESP 18; TEMP 36.7; O2SAT 100
--- NOTE | 2018-06-23 16:38 | W.PM.PROGNOT ---
Date of Service Date of service: 06/23/18 Time of Service: 16:38 Assessment and Plan (1) Expressive aphasia: Current visit: Yes Status: Acute Symptoms of aphasia, with reported difficulty in expressing words either with speech or by typing. Patient is also noted to be slightly altered from her normal mental status, and while she is very appropriate does have trouble with recalling such things as her age, birthdate, date and year. She is also reporting difficulty entering numbers into her telephone today, and mild UE weakness. She also understands that this is not her norm. ECHO with atheromatous plaque on the ascending aorta - Obvious concern for an acute CVA/TIA, possibly embolic. Discussed case with Stroke Neurology at [facility] who recommended continuation antiplatelet therapy, and awaiting results of MRI - may consider addition of oral factor Xa inhibitor pending results. Ms. Portillo reports no daily aspirin use prior to her hospitalization - initiated on once a day aspirin, as well as high potency statin therapy. CT of the head and CT angiogram of the head and neck were negative for any acute findings - will follow up with an MRI of the brain (unfortunately MRI machine is not functioning currently). Will continue to allow for some degree of permissive hypertension. Continue telemetry. HgA1C and Lipids checked as well. Although lithium level was mildly elevated, the patient's symptoms do not appear typical for lithium toxicity. EKG was slightly abnormal, but with serial cardiac biomarkers undetectable. Neurology consulted, and input is appreciated. (2) Bipolar I disorder: Current visit: Yes Status: Chronic [place] levels well within normal now. Resume dosing, and continue the remainder of the patient's psychiatric regimen, including mirtazapine, clonazepam, venlafaxine, and Ziprasidone. Continue to monitor lithium levels closely, and reinitiate when appropriate. (3) Essential hypertension: Current visit: Yes Status: Chronic Continue to allow permissive hypertension as above. (4) Hyperlipidemia: Current visit: Yes Status: Chronic Initiated high potency statin therapy as above. (5) Hypothyroidism (acquired): Current visit: Yes Status: Chronic TSH currently low, with prior value grossly elevated in October 2017. Will decrease dose, and recommend repeat TSH in the near future as an outpatient. (6) DVT prophylaxis: Current visit: Yes Status: Acute SC Lovenox. Subjective Interval history since last seen: Very pleasant 58-year-old woman with past medical history significant for HTN, dyslipidemia, and obesity, admitted from [facility] Emergency Department on 06/22 with complaints of aphasia. Ms. Portillo has a prior history of HTN, dyslipidemia, obesity, gout, and psoriasis. She also has a prior history of hypothyroidism, with a current TSH that appears to be low, as well as bipolar disorder chronically maintained on lithium, spinal stenosis, OAB, and venous insufficiency. The patient presented to the ED with complaints of new onset aphasia. She reported waking up the day prior to her admission feeling tired and with a headache, and stayed in bed for a few more hours after that which is unusual for her. She reportedly did not 'feel good' for the remainder of the day, but was not really sure of the reason. However, by the time she went to bed she was feeling reasonably well, and awoke the next morning feeling okay. 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 However she then noticed that she could not say words that she was thinking of correctly, and states that others noted the same. She also noticed incorrect typing, reported as being unable to relay what she was thinking in a correct manner. This prompted her to present to the emergency department for further evaluation. Workup in the ED was fairly unremarkable, with essentially normal lab work with the exception of a mildly low TSH of 0.28, and a minimal elevation in lithium levels at 1.43. CT of the head, followed by CT angiogram of the head and neck were both interpreted as without evidence of acute abnormality. EKG showed NSR with TW inversions in I/AVL and PRWP, but also with a negative troponin. Mrs. Castillo was also noted to be slightly confused although very appropriate, unable to verify the exact date, her age, or the year. Suspicion was for potential CVA/TIA, and the patient was referred for admission for further evaluation and treatment. This morning Ms. Portillo reports perhaps mildly improved symptoms, but with continued difficulty with aphasia - also endorses difficulty entering correct numbers on her telephone, and mild weakness of her UE. No overnight events reported. Her ECHO was normal, but showed evidence of a localized atheromatous plaque in the proximal aorta. Remains afebrile. Exam Narrative Exam Narrative: General: Patient appears comfortable, AAOX2, NAD Neck: Supple CV: Regular, nontachycardic, S1S2, No rubs, murmurs, or gallops. Pulmonary: Clear to auscultation bilaterally, no crackles, wheezing, or rhonchi Abdomen: + Bowel Sounds, soft, nontender, nondistended Vascular: No lower extremity edema Psych: Normal mood and affect. Objective Objective Clinical Data: Abnormal lab results 06/23/18 06/23/18 Range/Units 07:00 07:00 Absolute Lymphocytes 1.15 L (1.2-3.4) k/cumm Chloride 108 H (98-107) mmol/L Creatinine 1.27 H (0.55-1.02) mg/dL Glucose 109 H (70-100) mg/dL Triglycerides 216 H (30-150) mg/dL Total Cholesterol 213 H (50-200) mg/dL LDL Cholesterol Direct 128 H (<100) mg/dL Vital Signs Temperature 36.7 C 06/23/18 15:56 Temperature Source Tympanic 06/23/18 15:56 Pulse 58 L 06/23/18 15:56 Pulse Rhythm Regular 06/23/18 14:08 Pulse 71 06/22/18 16:50 Respiratory Rate 18 06/23/18 15:56 Respiratory Effort 06/23/18 14:08 Respiratory Depth Normal 06/23/18 14:08 Respiratory Pattern Normal 06/23/18 14:08 Blood Pressure 161/81 H 06/23/18 15:56 Blood Pressure Mean 111 06/22/18 16:46 Blood Pressure Position Supine 06/22/18 12:09 Pulse Oximetry 100 06/23/18 15:56 Oxygen Delivery Method Room Air 06/23/18 15:56 Oxygen Flow Rate 0 06/23/18 15:56 Pain Level 0 06/22/18 16:55 Comment 06/23/18 07:53 Intake & Output 06/22/18 06/23/18 06/23/18 23:59 11:59 23:59 Intake Total 1000 / 1000 450 / 810 360 / 810 Output Total 1500 / 1500 2500 / 3000 500 / 3000 Balance -500 / -500 -2049 / -2189 -140 / -0 Weight 93.44 kg Intake: IV 1000 / 1000 Oral 450 / 810 360 / 810 Output: Urine 1500 / 1500 2500 / 3000 500 / 3000 Other: Urine Color Straw Yellow Yellow Urine Appearance Clear Clear Clear Urine Odor Normal None Voiding Methods Toilet Toilet Toilet Laboratory Results WBC 6.01 k/cumm (4.4-10.8) 06/23/18 07:00 RBC 4.07 m/cumm (4.00-5.20) 06/23/18 07:00 Hgb 12.4 g/dL (12.0-15.5) 06/23/18 07:00 Hct 37.8 % (36.0-46.0) 06/23/18 07:00 MCV 92.9 fL (80-95) 06/23/18 07:00 MCH 30.5 pg (27.0-33.0) 06/23/18 07:00 MCHC 32.8 g/dL (32.0-36.0) 06/23/18 07:00 RDW 13.8 % (11.7-14.6) 06/23/18 07:00 Plt Count 215 x1000/uL (130-400) 06/23/18 07:00 MPV 10.0 fL (8.0-11.0) 06/23/18 07:00 Immature Gran % 0.2 06/23/18 07:00 Neutrophils % 73.0 06/23/18 07:00 Lymphocytes % 19.1 06/23/18 07:00 Monocytes % 4.3 06/23/18 07:00 Eosinophils % 3.2 06/23/18 07:00 Basophils % 0.2 06/23/18 07:00 Absolute Neutrophils 4.39 k/cumm (1.2-6.7) 06/23/18 07:00 Absolute Lymphocytes 1.15 k/cumm (1.2-3.4) L 06/23/18 07:00 Absolute Monocytes 0.26 k/cumm (0.11-0.7) 06/23/18 07:00 Absolute Eosinophils 0.19 k/cumm (0.0-0.7) 06/23/18 07:00 Absolute Basophils 0.01 k/cumm (0.0-0.2) 06/23/18 07:00 Sodium 141 mmol/L (136-145) 06/23/18 07:00 Potassium 4.2 mmol/L (3.5-5.1) 06/23/18 07:00 Chloride 108 mmol/L (98-107) H 06/23/18 07:00 Carbon Dioxide 24.2 mmol/L (21.0-32.0) 06/23/18 07:00 Anion Gap 8.8 mmol/L (3-11) 06/23/18 07:00 BUN 17 mg/dL (7-18) 06/23/18 07:00 Creatinine 1.27 mg/dL (0.55-1.02) H 06/23/18 07:00 Estimated GFR/1.73 m2 43.07 (mL/min/1.73m2) 06/23/18 07:00 Glucose 109 mg/dL (70-100) H 06/23/18 07:00 Hemoglobin A1c 5.0 % (4.5-6.2) 06/23/18 07:00 Calcium 9.6 mg/dL (8.5-10.1) 06/23/18 07:00 Magnesium 2.1 mg/dL (1.8-2.4) 06/23/18 07:00 Total Bilirubin 0.3 mg/dL (0.2-1.0) 06/22/18 13:50 AST 22 U/L (15-37) 06/22/18 13:50 ALT 27 U/L (12-78) 06/22/18 13:50 Alkaline Phosphatase 120 U/L (46-116) H 06/22/18 13:50 Ammonia < 10 umol/L (11-32) L 06/22/18 13:50 Troponin I 0.02 ng/mL (0.00-0.06) 06/23/18 07:00 Total Protein 7.1 g/dL (6.4-8.2) 06/22/18 13:50 Albumin 3.2 g/dL (3.4-5.0) L 06/22/18 13:50 Triglycerides 216 mg/dL (30-150) H 06/23/18 07:00 Total Cholesterol 213 mg/dL (50-200) H 06/23/18 07:00 LDL Cholesterol Direct 128 mg/dL (<100) H 06/23/18 07:00 HDL Cholesterol 54 mg/dL (40-60) 06/23/18 07:00 TSH 0.28 uIU/mL (0.358-3.74) L 06/22/18 13:50 Urine Color Straw (Yellow) 06/22/18 13:35 Urine Clarity Clear 06/22/18 13:35 Urine pH 7.0 (5-8) 06/22/18 13:35 Ur Specific [place] 1.010 (1.005-1.025) 06/22/18 13:35 Urine Protein 30 mg/dL (Negative) H 06/22/18 13:35 Urine Ketones Negative mg/dL (Negative) 06/22/18 13:35 Urine Blood Negative (Negative) 06/22/18 13:35 Urine Nitrite Negative (Negative) 06/22/18 13:35 Urine Bilirubin Negative (Negative) 06/22/18 13:35 Urine Urobilinogen 0.2 EU/dL (Up TO 0.2) 06/22/18 13:35 Ur Leukocyte Esterase Negative (Negative) 06/22/18 13:35 Urine RBC Negative (0-2) 06/22/18 13:35 Urine WBC 3-5 HPF (0-5) 06/22/18 13:35 Ur Epithelial Cells Many HPF (Negative) 06/22/18 13:35 Urine Crystals Negative HPF (Negative) 06/22/18 13:35 Urine Bacteria Rare HPF (Negative) 06/22/18 13:35 Urine Casts Negative LPF (Negative) 06/22/18 13:35 Urine Mucus Negative (Negative) 06/22/18 13:35 Ur Culture Indicated? No 06/22/18 13:35 Urine Glucose Negative mg/dL (Negative) 06/22/18 13:35 [place] 1.16 mmol/L (0.60-1.20) 06/23/18 07:00
[2018-06-23] MEDS: Lithium Carbonate 300 MG CAP 900 MG PO (17:31)
[2018-06-23] MEDS: Enoxaparin 40 MG/0.4 ML SYR SC (17:31)
--- NOTE | 2018-06-23 18:36 | NUR.NOTE ---
Nursing Note: patient had an episode of anxiety r/t arm pain concerned that it was he iv access, but stated that the arm pain was there previous to admission. site had been flushed earlier, and still was no signs of problems with the access, she was given tylenol and supportive care
[2018-06-23] MEDS: Atorvastatin 40 MG TAB PO (20:23)
[2018-06-23] MEDS: Senna TAB 1 TAB PO (20:26)
[2018-06-23] MEDS: Mirtazapine 15 MG TAB PO (21:20)
[2018-06-23] MEDS: clonazePAM 0.5 MG TAB PO (21:20)
[2018-06-23] MEDS: Docusate Sodium 100 MG CAP PO (21:20)
[2018-06-23 22:59] VITALS: PULSE 67
--- NOTE | 2018-06-23 23:00 | NUR.NOTE ---
Nursing Note: Pt. complaining of soreness in left shoulder, reports it has been going on for about the last three weeks. Pt. reports she has been taking Tylenol and that seems to help. Pain treated per MD orders.
[2018-06-24] VITALS (10 sets, daily range): BP systolic 123–167; BP diastolic 69–79; PULSE 53–81; RESP 18–20; TEMP 36.4–36.7; O2SAT 95–100
[2018-06-24] MEDS: Levothyroxine 175 MCG TAB PO (05:59)
[2018-06-24 07:51] LABS: Lithium 1.32 mmol/L (0.60-1.20)
[2018-06-24] MEDS: Venlafaxine 37.5 MG CAPCR 75 MG PO (08:35)
[2018-06-24] MEDS: Ziprasidone 20 MG CAP PO (08:35)
[2018-06-24] MEDS: Venlafaxine 150 MG CAPCR PO (08:35)
[2018-06-24] MEDS: Methylphenidate 10 MG TAB 20 MG PO (08:35)
[2018-06-24] MEDS: Oxybutynin-CR 5 MG TABCR 10 MG PO (08:35)
[2018-06-24] MEDS: Calcitriol 0.25 MCG CAP PO (08:36)
[2018-06-24] MEDS: Aspirin E.C. 81 MG TABEC PO (08:36)
[2018-06-24] MEDS: LORazepam 2 MG/ML VIAL 1 MG IVP (11:03)
[2018-06-24] MEDS: Lithium Carbonate 300 MG CAP 600 MG PO (11:03)
[2018-06-24] MEDS: Normal Saline Flush 10 ML SYR IVP ×2 (11:03→13:16)
--- NOTE | 2018-06-24 12:35 | DI.MRI_ITS ---
SYMPTOMS/DIAGNOSIS: APHASIA CT BRAIN, NONCONTRAST: Comparison is 06/22/18. There is patient motion artifact, which does limit the examination. The ventricles and sulci are consistent with the patient's age. The diffusion weighted images show no evidence of an acute infarct. No intracranial hemorrhage is seen. The ventricles are intact. The basilar cisterns are patent. No acute midline shift or mass effect is identified. There is a flow void seen in the [place] of [place]. The pithiatry gland is unremarkable. The visualized paranasal sinuses are clear. IMPRESSION: No evidence of an acute infarct or intracranial hemorrhage.
[2018-06-24] MEDS: Normal Saline 1,000 ML 125 ML IV ×2 (13:16→23:20)
--- NOTE | 2018-06-24 13:49 | PDOC.CMPRO ---
- If Service Date Differs Date of service: 06/24/18 Time of Service: 13:49 Care Management Progress Note S/O: Carmen is lying in bed when this teletypewriter installer visits this morning. She is pleasant and receptive to discussion. Carmen is scheduled to have an MRI today and to see neurology. She continues to require telemetry monitoring. A: 58 y/o female admitted 06/22/18 for altered mental status; aphasia P: Carmen will return home with no anticipated services when medically cleared. She will F/U with PCP and plan of care as prescribed. She will transport via private vehicle with her friend.
--- NOTE | 2018-06-24 13:57 | CMPROGNOTE_ITS ---
- If Service Date Differs Date of service: 06/24/18 Time of Service: 13:49 Care Management Progress Note S/O: Carmen is lying in bed when this life underwriter visits this morning. She is pleasant and receptive to discussion. Carmen is scheduled to have an MRI today and to see neurology. She continues to require telemetry monitoring. A: 58 y/o female admitted 06/22/18 for altered mental status; aphasia P: Carmen will return home with no anticipated services when medically cleared. She will F/U with PCP and plan of care as prescribed. She will transport via private vehicle with her friend.
--- NOTE | 2018-06-24 14:04 | PHARADMIT ---
Admission Pharmacy Clinical Review ALTERED MENTAL STATUS, APHASIA (observation) Code Status Full Code Current Weight 93.44 kg Renally Cleared and Narrow Therapeutic Index Meds CrCl~37.7ml/min QTc Value / Action Taken QTC 424 (Effexor, Remeron, Geodon) BP Control, Fever BP 167/79, Afebrile Electrolytes reviewed in range DVT Prophylaxis Lovenox 40mg Opiate Usage / Scheduled Bowel Regimen Ordered none Plt/SCr for Heparin / Enoxaparin Plt 215 SCr 1.27 INR for Warfarin H/H stable, WBC/Bands H/H 12.4/37.8 WBC 6.01 Antibiotic appropriateness n/a Cultures and Sensitivities n/a Surgical ABX d/c within 24 hr DM control / Insulin Dosing Heart Failure (Check EF%) (WILVER's, B-Block, Diuretics) Amiloride IV to PO Switch Home Meds Reviewed Pt's own Amiloride, Otezla, Red yeast rice....all labeled and in med cart Home Meds Not Ordered Vesicare, some topicals,...many duplicates on home med list Comments Troponin's negative x 3 [place] level 1.32 H (range 0.6-1.2)....dose adjusted down to 600mg daily ?CVA-Statin started MRI today-results not reported yet, Neurology consult today TSH level low, will need Levothyroxine dose decreased by pcp?
--- NOTE | 2018-06-24 15:08 | W.NEUROCONSU ---
Date of service: 06/24/18 Time of Service: 13:08 Assessment and Plan (1) Confusion: Current visit: Yes Status: Acute Ms. Portillo is a 58 year-old, right-handed woman who was admitted with waxing/waning language production difficulties along with a 2-3 week history of confusion/altered mental status, RUE weakness, imbalance, difficulty using technology, memory loss, headaches, and increased tremor. Her neurological exam was consistent with disorientation, a Parkinsonian termor, as well as asterixis. She underwent a stroke work-up including a brain MRI which showed no acute ischemia, which in my opinion rules out TIA/stroke as the etiology of her symptoms, despite the known atheroma. She should continue aspirin given this finding however. Otherwise, given her exam and history, I am most concerned about a toxic-metabolic state vs subjective manifestations of her mood disorder. The differential diagnosis also includes migraine, but seems less likely given duration of her dysfunction. Her lithium was held and her level dropped to 1.16 but is now back to 1.32. She reports prior lithium toxicity manifested by flu-like illness which is not happening at present. [employer] toxicity can cause neurological symptoms as she has, though I don't know how much [employer] is playing a role at present. Neurological manifestations of lithium toxicity can take days to weeks to resolve even after attaining normal serum levels which makes the diagnosis somewhat more difficult. Her TSH was low at 0.28 and her levothyroxine has been adjusted. Her ammonia was 16. B12, folate, and RPR are all pending. I would consider an EEG as further work-up to look for signs of encephalopathy and rule out seizure activity. Otherwise, I would also consider further work-up with a LP to look for infectious/inflammatory etiologies (CSF cell count, glucose, protein, gram stain/cx with extra fluid saved for potential further testing). Consider Lyme testing. Consider CRP/ESR but may be elevated due to her psoriasis. Consider psychiatry consultation. She is improving so I don't think we need to get a paraneoplastic panel at this time, but can consider it. Consider high-dose thiamine supplementation. History of Present Illness Chief Complaint: aphasia Narrative: Handedness: right. HPI: Ms. Portillo is a 58 year-old woman with a PMH of Bipolar I disorder, hypertension, hyperlipidemia, obesity, gout, psoriasis, overactive bladder, and spinal stenosis. Her story begins on 06/21/18 when she awoke unusually tired, so she went back to sleep. She remained tired for most of the day and also had a headache. She talked to a friend twice on the phone that day who thought she sounded groggy but otherwise normal. Ms. Portillo was feeling better by the end of the day. The next day she went to work as per usual. However, when she was trying to type on the computer, the wrong words were coming up on the screen. She had similar difficulty writing including difficulty getting the words on paper. When she interacted with a co-worker she noted difficulty getting her words out and occasionally saying the wrong words. She initially reported that these symptoms were waxing and waning and eventually presented to the ER. In the ER, she was noted to have an NIHSS of 4 with 2 points for bilateral leg drift, 1 point for not knowing her age, and another point for difficulty reading the provided words and sentences - essentially for fluency though this is not part of the standard testing/assessment. It should be noted that she was able to name all objects on the cue card accurately. Her work-up was significant for a mildly elevated [employer] level of 1.43. She underwent a CT head along with a CTA head and neck all of which were fairly unremarkable. She was started on aspirin 325mg daily and high-dose statin and admitted for possible stroke. She was not a candidate for tPA due to being outside of the time window. Since admission, she notes mild improvement in her speech. 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 She also notes right arm weakness but could not say if this was present for 2-3 weeks or started 3/17-06/22 with her recent symptoms. She also recently started a strict no-carb, low-fat, no-caffeine diet. She has a counselor: Myesha Saeed (?). Dr. Mcnair manages her psych medications. She reports stable Bipolar symptoms for the last 1 year. Her lithium was increased from 900mg-600mg QOD to 900mg daily in early May mainly for ease of use. It sounds like she has had increased headaches this winter which she has attributed to new psoriasis medications. I am not sure what her baseline headache history is. Further work-up included a TTE which showed mild LVH, normal EF, no wall motion abnormalities, normal LA, and a 0.4x0.7cm atheroma on the proximal ascending aorta. She underwent a brain MRI w/o today which I was able to review and was unremarkable. Consults Requesting physician: Ky Cash Review of Systems Review of Systems All systems reviewed & are unremarkable except as noted in HPI and below PFSH Medical History Expressive aphasia (Acute) Venous insufficiency of both lower extremities (Chronic) Stasis dermatitis of both legs (Chronic) Tinnitus of both ears (Chronic 11/11/13) Spinal stenosis (Chronic) Rosacea (Chronic) Psoriasis (Chronic 03/13/17) Overactive bladder (Chronic 10/03/17) Obesity (Chronic) Mixed conductive and sensorineural hearing loss of right ear with restricted hearing of left ear (Chronic 12/31/16) Lichen sclerosus et atrophicus (Chronic 03/12/12) Knee pain, chronic (Chronic) Hypothyroidism (acquired) (Chronic) Hypertensive retinopathy of both eyes, grade 1 (Chronic) Hyperlipidemia (Chronic 12/02/12) Hidradenitis (Chronic) Hiatal hernia (Chronic) Gout (Chronic 02/17/13) Essential hypertension (Chronic 02/17/13) Chronic renal impairment (Chronic 02/17/13) Cardiac murmur (Chronic 03/06/03) Bipolar I disorder (Chronic) Surgical History Abdominal hysterectomy (~2002) Arthroplasty of knee Bilateral salpingectomy with oophorectomy (~2002) Cholecystectomy Dilation and curettage EXOSTECTOMY MASTOIDECTOMY Open Carpal Tunnel release SALIVARY SURGERY VOCAL CORD SURGERY Family History Mother Diabetes Essential hypertension Depression Heart disease Hyperlipidemia Stroke Father Essential hypertension Heart disease Hyperlipidemia Sister Depression Brother Depression Brother No problems noted. Social History Smoking/Tobacco Use Status: Former Tobacco Use Alcohol Intake: current Alcohol Intake frequency: 0-2 drinks per day Alcohol type: beer Drug use: Never Substance use type: does not use Household members: other Details: SELF Pets and animals: Yes Pets and animals: dog(s) Frequency: 1-2 times per week Lian/Mandaeism: Anabaptist Special lian needs: No Do you feel safe at home: Yes Do you feel safe in your relationship?: Yes Visit Medication and Allergies Active Medications Generic Name Dose Route Start Last Admin Trade Name Freq PRN Reason Stop Dose Admin Acetaminophen 325 - 650 mg 06/22/18 16:25 06/23/18 22:57 Tylenol PO 650 mg Q4H PRN PRN Administration Al Hydrox/Mg Hydrox/Simethicone 30 ml 06/22/18 16:25 Mylanta Liquid PO Q2H PRN PRN Albuterol/Ipratropium 3 ml 06/22/18 16:25 Duoneb Updraft UPD Q6H PRN PRN Aspirin 81 mg 06/23/18 08:30 06/24/18 08:36 Ecotrin PO 81 mg DAILY DORYS Administration Atorvastatin Calcium 40 mg 06/22/18 20:00 06/23/18 20:23 Lipitor PO 40 mg QPM DORYS Administration Calcitriol 0.25 mcg 06/24/18 09:00 06/24/18 08:36 Rocaltrol PO 0.25 mcg MoWeFr@0900 DORYS Administration Celecoxib 100 mg 06/22/18 20:00 Celebrex PO BID PRN PRN Clonazepam 0.5 mg 06/22/18 22:00 06/23/18 21:20 Klonopin PO 0.5 mg HS DORYS Administration Dimethicone/Zinc Oxide 0 gm 06/22/18 16:25 Evelyn Protect Cream TP PRN PRN Docusate Sodium 100 mg 06/22/18 16:25 06/23/18 21:20 Colace PO 100 mg TID PRN PRN Administration Enoxaparin Sodium 40 mg 06/22/18 18:00 06/23/18 17:31 Lovenox SC 40 mg Q24H DORYS Administration Sodium Chloride 1,000 mls @ 125 mls/hr 06/24/18 08:30 06/24/18 13:16 Saline 1000ml Bag IV 125 mls/hr INFUSION DORYS Administration IV Miscellaneous Supplies 1 each 06/22/18 12:45 IV DIRECTED DORYS Iohexol 100 ml 06/22/18 15:45 06/22/18 15:38 Omnipaque 350 IV 07/22/18 23:59 100 ml DIRECTED DORYS Administration Levothyroxine Sodium 175 mcg 06/23/18 06:00 06/24/18 05:59 Levothroid PO 175 mcg DAILY@0600 DORYS Administration [employer] Carbonate 600 mg 06/24/18 08:30 06/24/18 11:03 Eskalith PO 600 mg DAILY DORYS Administration Magnesium Hydroxide 30 ml 06/22/18 16:25 Milk Of Magnesia PO DAILY PRN PRN Methylphenidate HCl 20 mg 06/23/18 08:30 06/24/18 08:35 Ritalin PO 20 mg DAILY DORYS Administration Mirtazapine 15 mg 06/22/18 22:00 06/23/18 21:20 Remeron PO 15 mg HS DORYS Administration Oxybutynin Chloride 10 mg 06/23/18 08:30 06/24/18 08:35 Ditropan Xl PO 10 mg DAILY DORYS Administration Pt's Own Apremilast 1 each 06/22/18 20:00 06/24/18 08:36 [Otezla] 30 Mg PO 1 each Tablet BID DORYS Administration Pt's Own Red Yeast 1 each 06/22/18 20:00 06/24/18 08:39 Rice 600 Mg Tablet PO Not Given BID DORYS Pt's Own Amiloride 5 1 each 06/23/18 08:30 06/24/18 08:36 Mg Tablet PO 1 each DAILY DORYS Administration Polyethylene Glycol 17 gm 06/22/18 16:25 Miralax PO DAILY PRN PRN Constipation Ranitidine HCl 150 mg 06/22/18 20:00 06/24/18 08:36 Zantac PO 150 mg BID DORYS Administration Sennosides 1 tab 06/22/18 16:16 06/23/18 20:26 Senokot PO 1 tab BID PRN PRN Administration Sodium Chloride 0 ml 06/22/18 12:43 06/24/18 13:16 Saline Flush 10 Ml Syringe IVP 10 ml PRN PRN Administration Venlafaxine HCl 75 mg 06/23/18 08:30 06/24/18 08:35 Effexor Xr PO 75 mg DAILY DORYS Administration Venlafaxine HCl 150 mg 06/23/18 08:30 06/24/18 08:35 Effexor Xr PO 150 mg DAILY DORYS Administration Ziprasidone 20 mg 06/23/18 08:30 06/24/18 08:35 Geodon PO 20 mg DAILY DORYS Administration Allergies Cephalosporins Allergy (Unknown, Unverified 06/22/18 13:24) haloperidol Allergy (Unknown, Unverified 06/22/18 13:24) indomethacin Adverse Reaction (Intermediate, Unverified 06/22/18 13:24) dizziness quetiapine Adverse Reaction (Intermediate, Unverified 06/22/18 13:24) RLS Butyrophenones Adverse Reaction (Unknown, Unverified 06/22/18 13:24) thioridazine Adverse Reaction (Unknown, Unverified 06/22/18 13:24) Exam Narrative Exam Narrative: Physical Exam: Gen: Patient of apparent stated age, NAD Head and face: no facial or cranial abnormalities Neck: Supple, no meningismus, no occipital tenderness CV: + S1, S2, RRR, no murmur Resp: CTA B/L Abd: soft, nontender, nondistended Ext: No edema. No clubbing or cyanosis. No bony deformity. Neuro Exam: Language: fluency, naming (including NIHSS card), repetition, and comprehension (able to follow 3-step command) intact; however, during the exam she at times had difficulty following simple 1-step commands; Mental Status: AAOx2, current events intact, fund of knowledge intact; she said her age was '57'; she initially said the year was 2017 and then changed to 2018; she knew the month and day. Speech: no dysarthria Cranial nerves: Funduscopy: not performed CN II: visual chance intact CN III, IV, : extraocular movements intact, no nystagmus, pupils symmetric and reactive to light CN V: face sensation intact to LT and PP CN VII: no facial asymmetry noted CN VIII: hearing intact bilaterally CN IX, X: palate rises symmetrically CN XI: trapezius/SCM 5/5 bilaterally CN XII: protrudes tongue symmetrically Sensory: intact to LT, PP, vibration, and joint position in all extremities Motor: bulk and tone intact. No bardykinesia or cogwheel rigidity. Fine motor movements intact bilaterally. ? Right pronator drift. Strength 5/5 throughout including the deltoids, biceps, triceps, wrist extensors, hip flexors, knee flexors, knee extensors, ankle flexors, and ankle extensors. RUE resting, pill-rolling tremor. Mild bilateral UE postural tremor with noted intermittent jerks c/w asterixis. Mild bilateral UE dysmetria. Reflexes: 2+ at the biceps, triceps, brachioradialis, patella, and achilles tendons bilaterally; toes neutral bilaterally; Coordination: FTN and HTS intact bilaterally with mild bilateral UE dysmetria Gait: deferred Results Last Vital Signs Temp 36.4 C L 06/24/18 07:50 Pulse 56 L 06/24/18 07:50 Resp 18 06/24/18 07:50 BP 167/79 H 06/24/18 07:50 Pulse Ox 99 06/24/18 08:55 Labs : 06/23/18 07:00 06/23/18 07:00 Laboratory Results - last 24 hr 06/24/18 06:08 [employer] 1.32 H
--- NOTE | 2018-06-24 15:40 | W.PM.PROGNOT ---
Date of Service Date of service: 06/24/18 Time of Service: 15:41 Assessment and Plan (1) Expressive aphasia: Current visit: Yes Status: Acute Symptoms of aphasia, with reported difficulty in expressing words either with speech or by typing. Patient is also noted to be slightly altered from her normal mental status, and while she is very appropriate does have trouble with recalling such things as her age, birthdate, date and year. She is also reporting difficulty entering numbers into her telephone, and mild UE weakness, as well as worsening tremors over the last 2 weeks. ECHO with atheromatous plaque on the ascending aorta - initial concern for an acute CVA/TIA, possibly embolic. However, MRI shows no evidence of acute abnormality, and overall appears fairly normal. CT of the head and CTA of the head and neck were also negative. Although lithium level was mildly elevated, the patient's symptoms do not appear typical for lithium toxicity. Will however decrease dose. EKG was slightly abnormal, but with serial cardiac biomarkers undetectable. Will check EEG tonight if able. Will also check labs, including ammonia, RPR, B12, FA, and await formal neurology consultation. May need LP as well. TSH abnormal in patient on replacement therapy - dose decreased. (2) Bipolar I disorder: Current visit: Yes Status: Chronic Wisner levels again mildly elevated. Resume medication but at lower dosing, repeat Wisner level, and continue the remainder of the patient's psychiatric regimen, including mirtazapine, clonazepam, venlafaxine, and Ziprasidone. (3) Essential hypertension: Current visit: Yes Status: Chronic (4) Hyperlipidemia: Current visit: Yes Status: Chronic Initiated high potency statin therapy as above. (5) Hypothyroidism (acquired): Current visit: Yes Status: Chronic TSH currently low, with prior value grossly elevated in October 2017. Decreased dose, and recommend repeat TSH in the near future as an outpatient. (6) DVT prophylaxis: Current visit: Yes Status: Acute SC Lovenox. Subjective Interval history since last seen: Very pleasant 58-year-old woman with past medical history significant for HTN, dyslipidemia, and obesity, admitted from [facility] Emergency Department on 06/22 with complaints of aphasia. Ms. Portillo has a prior history of HTN, dyslipidemia, obesity, gout, and psoriasis. She also has a prior history of hypothyroidism, with a current TSH that appears to be low, as well as bipolar disorder chronically maintained on lithium, spinal stenosis, OAB, and venous insufficiency. The patient presented to the ED with complaints of new onset aphasia. She reported waking up the day prior to her admission feeling tired and with a headache, and stayed in bed for a few more hours after that which is unusual for her. She reportedly did not 'feel good' for the remainder of the day, but was not really sure of the reason. However, by the time she went to bed she was feeling reasonably well, and awoke the next morning feeling okay. 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 However she then noticed that she could not say words that she was thinking of correctly, and states that others noted the same. She also noticed incorrect typing, reported as being unable to relay what she was thinking in a correct manner. This prompted her to present to the emergency department for further evaluation. Workup in the ED was fairly unremarkable, with essentially normal lab work with the exception of a mildly low TSH of 0.28, and a minimal elevation in lithium levels at 1.43. CT of the head, followed by CT angiogram of the head and neck were both interpreted as without evidence of acute abnormality. EKG showed NSR with TW inversions in I/AVL and PRWP, but also with a negative troponin. Mrs. Castillo was also noted to be slightly confused although very appropriate, unable to verify the exact date, her age, or the year. Suspicion was for potential CVA/TIA, and the patient was referred for admission for further evaluation and treatment. This morning Ms. Portillo reports continued difficulty with aphasia, continued difficulty entering correct numbers on her telephone, and continue mild weakness of her UE's. As per discussion with neurology, she reports that her symptoms have been ongoing for over 2 weeks, and include other symptoms including difficulty operating a copy machine and worsening tremors. No overnight events reported. Her ECHO was normal, but showed evidence of a localized atheromatous plaque in the proximal aorta. MRI of the brain was performed and negative for acute infarct or ICH. Remains afebrile. Exam Narrative Exam Narrative: General: Patient appears comfortable, AAOX2, NAD Psych: Normal mood and affect. Objective Objective Clinical Data: Abnormal lab results 06/24/18 Range/Units 06:08 Wisner 1.32 H (0.60-1.20) mmol/L Vital Signs Temperature 36.4 C L 06/24/18 07:50 Temperature Source Tympanic 06/24/18 07:50 Pulse 56 L 06/24/18 07:50 Pulse Rhythm Regular 06/24/18 08:08 Pulse 71 06/22/18 16:50 Respiratory Rate 18 06/24/18 07:50 Respiratory Effort Non-Labored 06/24/18 08:08 Respiratory Depth Normal 06/24/18 08:08 Respiratory Pattern Normal 06/24/18 08:08 Blood Pressure 167/79 H 06/24/18 07:50 Blood Pressure Mean 111 06/22/18 16:46 Blood Pressure Position Supine 06/22/18 12:09 Pulse Oximetry 99 06/24/18 08:55 Oxygen Delivery Method Room Air 06/24/18 08:55 Oxygen Flow Rate 0 06/24/18 08:55 Pain Level 5 06/23/18 22:57 Comment 06/23/18 07:53 Intake & Output 06/23/18 06/24/18 06/24/18 23:59 11:59 23:59 Intake Total 720 / 1170 360 / 830 470 / 830 Output Total 1400 / 3900 1000 / 1000 Balance -680 / -2730 -640 / -170 470 / -170 Intake: IV Oral 720 / 1170 360 / 810 450 / 810 Output: Urine 1400 / 3900 1000 / 1000 Other: Urine Color Yellow Yellow Urine Appearance Clear Clear Urine Odor None Normal Voiding Methods Toilet Toilet Laboratory Results WBC 6.01 k/cumm (4.4-10.8) 06/23/18 07:00 RBC 4.07 m/cumm (4.00-5.20) 06/23/18 07:00 Hgb 12.4 g/dL (12.0-15.5) 06/23/18 07:00 Hct 37.8 % (36.0-46.0) 06/23/18 07:00 MCV 92.9 fL (80-95) 06/23/18 07:00 MCH 30.5 pg (27.0-33.0) 06/23/18 07:00 MCHC 32.8 g/dL (32.0-36.0) 06/23/18 07:00 RDW 13.8 % (11.7-14.6) 06/23/18 07:00 Plt Count 215 x1000/uL (130-400) 06/23/18 07:00 MPV 10.0 fL (8.0-11.0) 06/23/18 07:00 Immature Gran % 0.2 06/23/18 07:00 Neutrophils % 73.0 06/23/18 07:00 Lymphocytes % 19.1 06/23/18 07:00 Monocytes % 4.3 06/23/18 07:00 Eosinophils % 3.2 06/23/18 07:00 Basophils % 0.2 06/23/18 07:00 Absolute Neutrophils 4.39 k/cumm (1.2-6.7) 06/23/18 07:00 Absolute Lymphocytes 1.15 k/cumm (1.2-3.4) L 06/23/18 07:00 Absolute Monocytes 0.26 k/cumm (0.11-0.7) 06/23/18 07:00 Absolute Eosinophils 0.19 k/cumm (0.0-0.7) 06/23/18 07:00 Absolute Basophils 0.01 k/cumm (0.0-0.2) 06/23/18 07:00 Sodium 141 mmol/L (136-145) 06/23/18 07:00 Potassium 4.2 mmol/L (3.5-5.1) 06/23/18 07:00 Chloride 108 mmol/L (98-107) H 06/23/18 07:00 Carbon Dioxide 24.2 mmol/L (21.0-32.0) 06/23/18 07:00 Anion Gap 8.8 mmol/L (3-11) 06/23/18 07:00 BUN 17 mg/dL (7-18) 06/23/18 07:00 Creatinine 1.27 mg/dL (0.55-1.02) H 06/23/18 07:00 Estimated GFR/1.73 m2 43.07 (mL/min/1.73m2) 06/23/18 07:00 Glucose 109 mg/dL (70-100) H 06/23/18 07:00 Hemoglobin A1c 5.0 % (4.5-6.2) 06/23/18 07:00 Calcium 9.6 mg/dL (8.5-10.1) 06/23/18 07:00 Magnesium 2.1 mg/dL (1.8-2.4) 06/23/18 07:00 Total Bilirubin 0.3 mg/dL (0.2-1.0) 06/22/18 13:50 AST 22 U/L (15-37) 06/22/18 13:50 ALT 27 U/L (12-78) 06/22/18 13:50 Alkaline Phosphatase 120 U/L (46-116) H 06/22/18 13:50 Ammonia < 10 umol/L (11-32) L 06/22/18 13:50 Troponin I 0.02 ng/mL (0.00-0.06) 06/23/18 07:00 Total Protein 7.1 g/dL (6.4-8.2) 06/22/18 13:50 Albumin 3.2 g/dL (3.4-5.0) L 06/22/18 13:50 Triglycerides 216 mg/dL (30-150) H 06/23/18 07:00 Total Cholesterol 213 mg/dL (50-200) H 06/23/18 07:00 LDL Cholesterol Direct 128 mg/dL (<100) H 06/23/18 07:00 HDL Cholesterol 54 mg/dL (40-60) 06/23/18 07:00 TSH 0.28 uIU/mL (0.358-3.74) L 06/22/18 13:50 Urine Color Straw (Yellow) 06/22/18 13:35 Urine Clarity Clear 06/22/18 13:35 Urine pH 7.0 (5-8) 06/22/18 13:35 Ur Specific [place] 1.010 (1.005-1.025) 06/22/18 13:35 Urine Protein 30 mg/dL (Negative) H 06/22/18 13:35 Urine Ketones Negative mg/dL (Negative) 06/22/18 13:35 Urine Blood Negative (Negative) 06/22/18 13:35 Urine Nitrite Negative (Negative) 06/22/18 13:35 Urine Bilirubin Negative (Negative) 06/22/18 13:35 Urine Urobilinogen 0.2 EU/dL (Up TO 0.2) 06/22/18 13:35 Ur Leukocyte Esterase Negative (Negative) 06/22/18 13:35 Urine RBC Negative (0-2) 06/22/18 13:35 Urine WBC 3-5 HPF (0-5) 06/22/18 13:35 Ur Epithelial Cells Many HPF (Negative) 06/22/18 13:35 Urine Crystals Negative HPF (Negative) 06/22/18 13:35 Urine Bacteria Rare HPF (Negative) 06/22/18 13:35 Urine Casts Negative LPF (Negative) 06/22/18 13:35 Urine Mucus Negative (Negative) 06/22/18 13:35 Ur Culture Indicated? No 06/22/18 13:35 Urine Glucose Negative mg/dL (Negative) 06/22/18 13:35 Wisner 1.32 mmol/L (0.60-1.20) H 06/24/18 06:08
[2018-06-24 16:48] LABS: Ammonia 16 umol/L (11-32)
[2018-06-24] MEDS: Enoxaparin 40 MG/0.4 ML SYR SC (18:19)
[2018-06-24] MEDS: Atorvastatin 40 MG TAB PO (19:55)
[2018-06-24 19:58] LABS: Folate 7.6 ng/mL (8.6-20.0); Vitamin B12 338 pg/mL (193-986)
[2018-06-24] MEDS: Polyethylene Glycol 3350 17 GM PACKET PO (19:58)
[2018-06-24] MEDS: clonazePAM 0.5 MG TAB PO (21:36)
[2018-06-24] MEDS: Mirtazapine 15 MG TAB PO (21:36)
[2018-06-25 00:18] VITALS: BP 154/69; PULSE 56; RESP 20; TEMP 36.6; O2SAT 95
[2018-06-25] MEDS: Levothyroxine 175 MCG TAB PO (05:33)
[2018-06-25] MEDS: Normal Saline 1,000 ML 125 ML IV (07:07)
[2018-06-25 07:20] VITALS: BP 158/76; PULSE 75; RESP 20; TEMP 36.3; O2SAT 100
[2018-06-25 07:30] LABS: Abs Immature Grans 0.01 k/cumm (0.0-0.09); Absolute Basophil Count 0.01 k/cumm (0.0-0.2); Absolute Lymphocyte Count 1.03 k/cumm (1.2-3.4); Absolute Monocyte Count 0.29 k/cumm (0.11-0.7); Absolute Neutrophil Count 4.52 k/cumm (1.2-6.7); Basophils % 0.2; Eosinophils % 3.3; HCT 34.4 % (36.0-46.0); HGB 11.4 g/dL (12.0-15.5); Immature Grans % 0.2; Mean Corp. HGB Concentration 33.1 g/dL (32.0-36.0); Mean Corpuscular Hemoglobin 30.8 pg (27.0-33.0); Monocytes % 4.8; Neutrophils % 74.5; Platelet Count 217 x1000/uL (130-400); RBC Distribution Width 13.8 % (11.7-14.6); White Blood Cell Count 6.06 k/cumm (4.4-10.8)
[2018-06-25 07:39] LABS: Anion Gap 8.4 mmol/L (3-11); BUN 19 mg/dL (7-18); CO2 23.6 mmol/L (21.0-32.0); CREATININE 1.23 mg/dL (0.55-1.02); Calcium 9.1 mg/dL (8.5-10.1); Chloride 110 mmol/L (98-107); Estimated GFR 44.69 (mL/min/1.73m2); Glucose 102 mg/dL (70-100); Magnesium 2.1 mg/dL (1.8-2.4); Potassium 4.5 mmol/L (3.5-5.1); Sodium 142 mmol/L (136-145)
[2018-06-25 07:41] LABS: Lithium 0.99 mmol/L (0.60-1.20)
[2018-06-25] MEDS: Oxybutynin-CR 5 MG TABCR 10 MG PO (08:06)
[2018-06-25] MEDS: Ziprasidone 20 MG CAP PO (08:06)
[2018-06-25] MEDS: Methylphenidate 10 MG TAB 20 MG PO (08:06)
[2018-06-25] MEDS: Venlafaxine 150 MG CAPCR PO (08:06)
[2018-06-25] MEDS: Venlafaxine 37.5 MG CAPCR 75 MG PO (08:07)
[2018-06-25] MEDS: Lithium Carbonate 300 MG CAP 600 MG PO (08:07)
[2018-06-25] MEDS: Aspirin E.C. 81 MG TABEC PO (08:07)
[2018-06-25 09:20] VITALS: O2SAT 100
[2018-06-25 09:29] VITALS: PULSE 61
--- NOTE | 2018-06-25 10:30 | PDOC.EEG_ITS ---
EEG: [facility] Department of Neurology INPATIENT EEG REPORT Date of Recordin06/25/18 Interpreting Physician: Dr. Lacy Manley Reason for study: Ms. Portillo is a 58 year-old woman admitted with a 3 week history of confusion and language difficulties concerning for intermittent seizures. Current Medications: Active Medications Generic Name Dose Route Start Last Admin Trade Name Freq PRN Reason Stop Dose Admin Acetaminophen 325 - 650 mg 06/22/18 16:25 06/23/18 22:57 Tylenol PO 650 mg Q4H PRN PRN Administration Al Hydrox/Mg Hydrox/Simethicone 30 ml 06/22/18 16:25 Mylanta Liquid PO Q2H PRN PRN Albuterol/Ipratropium 3 ml 06/22/18 16:25 Duoneb Updraft UPD Q6H PRN PRN Aspirin 81 mg 06/23/18 08:30 06/25/18 08:07 Ecotrin PO 81 mg DAILY DORYS Administration Atorvastatin Calcium 40 mg 06/22/18 20:00 06/24/18 19:55 Lipitor PO 40 mg QPM DORYS Administration Calcitriol 0.25 mcg 06/24/18 09:00 06/24/18 08:36 Rocaltrol PO 0.25 mcg [id number] DORYS Administration Celecoxib 100 mg 06/22/18 20:00 Celebrex PO BID PRN PRN Clonazepam 0.5 mg 06/22/18 22:00 06/24/18 21:36 Klonopin PO 0.5 mg HS DORYS Administration Dimethicone/Zinc Oxide 0 gm 06/22/18 16:25 Evelyn Protect Cream TP PRN PRN Docusate Sodium 100 mg 06/22/18 16:25 06/23/18 21:20 Colace PO 100 mg TID PRN PRN Administration Enoxaparin Sodium 40 mg 06/22/18 18:00 06/24/18 18:19 Lovenox SC 40 mg Q24H DORYS Administration Folic Acid 1 mg 06/25/18 08:30 Folate PO DAILY [facility] Sodium Chloride 1,000 mls @ 125 mls/hr 06/24/18 08:30 06/25/18 10:16 Saline 1000ml Bag IV 0 mls/hr INFUSION DORYS Infusion IV Miscellaneous Supplies 1 each 06/22/18 12:45 IV DIRECTED DORYS Iohexol 100 ml 06/22/18 15:45 06/22/18 15:38 Omnipaque 350 IV 07/22/18 23:59 100 ml DIRECTED DORYS Administration Levothyroxine Sodium 175 mcg 06/23/18 06:00 06/25/18 05:33 Levothroid PO 175 mcg DAILY@0600 DORYS Administration [place] Carbonate 900 mg 06/26/18 08:30 Eskalith PO DAILY DORYS Magnesium Hydroxide 30 ml 06/22/18 16:25 Milk Of Magnesia PO DAILY PRN PRN Methylphenidate HCl 20 mg 06/23/18 08:30 06/25/18 08:06 Ritalin PO 20 mg DAILY DORYS Administration Mirtazapine 15 mg 06/22/18 22:00 06/24/18 21:36 Remeron PO 15 mg HS DORYS Administration Oxybutynin Chloride 10 mg 06/23/18 08:30 06/25/18 08:06 Ditropan Xl PO 10 mg DAILY DORYS Administration Pt's Own Apremilast 1 each 06/22/18 20:00 06/25/18 08:09 [Otezla] 30 Mg PO 1 each Tablet BID DORYS Administration Pt's Own Red Yeast 1 each 06/22/18 20:00 06/25/18 08:21 Rice 600 Mg Tablet PO Not Given BID DORYS Pt's Own Amiloride 5 1 each 06/23/18 08:30 06/25/18 08:09 Mg Tablet PO 1 each DAILY DORYS Administration Polyethylene Glycol 17 gm 06/22/18 16:25 06/24/18 19:58 Miralax PO 17 gm DAILY PRN PRN Administration Constipation Ranitidine HCl 150 mg 06/22/18 20:00 06/25/18 08:06 Zantac PO 150 mg BID DORYS Administration Sennosides 1 tab 06/22/18 16:16 06/23/18 20:26 Senokot PO 1 tab BID PRN PRN Administration Sodium Chloride 0 ml 06/22/18 12:43 06/24/18 13:16 Saline Flush 10 Ml Syringe IVP 10 ml PRN PRN Administration Venlafaxine HCl 75 mg 06/23/18 08:30 06/25/18 08:07 Effexor Xr PO 75 mg DAILY DORYS Administration Venlafaxine HCl 150 mg 06/23/18 08:30 06/25/18 08:06 Effexor Xr PO 150 mg DAILY DORYS Administration Ziprasidone 20 mg 06/23/18 08:30 06/25/18 08:06 Geodon PO 20 mg DAILY DORYS Administration cyanocobalamin (vitamin B-12) [B-12] 1,000 mcg PO 3X/WEEK #36 08/21/12 red yeast rice 1 tab PO BID 08/21/12 celecoxib [Celebrex] 100 mg PO BID #180 tab-cap 07/21/13 senna 1 tab-cap PO BID PRN tab-cap 03/06/15 docusate sodium [Colace] 1 cap PO DAILY PRN 03/07/15 ibuprofen [Motrin IB] 3 tab PO TID PRN 06/07/15 triamcinolone acetonide 0 TOPICAL BID #30 g 09/07/15 fluocinonide 0 TOPICAL BID #60 g 11/28/15 ziprasidone HCl 20 mg PO DAILY #90 cap 07/25/17 mirtazapine 2 tab PO HS #180 tab 07/29/17 levothyroxine 175 mcg PO as directed #90 tab-cap 09/19/17 levothyroxine 200 mcg PO As Dirrected #36 tab-cap 10/03/17 lithium carbonate 300 mg PO DAILY #90 tab-cap 10/03/17 lithium carbonate 600 mg PO DAILY #90 cap 10/03/17 ranitidine HCl 150 mg PO BID #180 tab-cap 10/03/17 venlafaxine 75 mg PO DAILY #90 tab-cap 11/19/17 venlafaxine 150 mg PO DAILY #90 tab-cap 11/19/17 indomethacin 50 mg capsule 50 mg PO TID PRN #30 cap 01/01/18 oxybutynin chloride ER 10 mg tablet,extended release 24 hr 10 mg PO DAILY #90 tab 01/01/18 calcitriol 0.25 mcg capsule 0.25 mcg PO 3 x wkly #12 tab-cap 03/19/18 amiloride 5 mg tablet 5 mg PO DAILY #90 tab-cap 05/12/18 apremilast 30 mg tablet 30 mg PO BID 05/12/18 clonazepam 0.5 mg tablet 0.5 mg PO HS #30 tab-cap 05/12/18 methylphenidate 20 mg tablet 20 mg PO DAILY #30 tab-cap MDD 20 mg 02/18/19 METHODS: A 21 channel digitized electroencephalogram was performed in the [facility] Med/Surg Floor or ICU. The 10/20 international system of electrode placement was used and bipolar and referential electrode montages were recorded. In addition to EEG the patient was monitored for EKG and lateral/vertical eye movements. Activation procedures of photic stimulation and hyperventilation were performed if applicable. Video was used during activation procedures and during events where applicable. The duration of the recording was 30 minutes. DESCRIPTION OF EEG: The patient was noted to be awake, drowsy, and asleep during the recording. During maximal wakefulness a 9-Hz posterior background rhythm was present which was well-modulated, symmetrical, reactive to eye opening, and of moderate voltage. With eye opening the background activity changed to a low voltage mixture of alpha, beta, and occasional theta range frequencies. Faster frequencies were present in the bilateral anterior head regions. There was a normal anterior-posterior voltage gradient. During drowsiness, there was attenuation of the posterior dominant background rhythm and vertex waves. Stage II sleep was present with symmetrical sleep spindles, K-complexes, and vertex waves. There was intermittent, polymorphic, moderate-amplitude, generalized delta and theta slowing throughout the recording. Activating Procedures: Photic stimulation was performed which produced no posterior driving response. Hyperventilation was performed with moderate effort and produced no physiological slowing of the background. EKG: EKG revealed normal sinus rhythm. INTERPRETATION: This EEG is abnormal due to intermittent generalized delta and theta slowing. PRIOR EEG: none CLINICAL CORRELATION: The above slowing is suggestive of a mild diffuse cerebral encephalopathy of broad differential including toxic-metabolic etiology, excessive sleepiness, etc. No focal regions of cerebral dysfunction or epileptiform activity was present. Clinical correlation is advised. Lacy Manley MD
[2018-06-25] MEDS: Folic Acid 1 MG TAB PO (11:16)
[2018-06-25] MEDS: Docusate Sodium 100 MG CAP PO (11:16)
[2018-06-25] MEDS: Senna TAB 1 TAB PO (11:16)
--- NOTE | 2018-06-25 13:17 | PDOC.CMPRO ---
- If Service Date Differs Date of service: 06/25/18 Time of Service: 13:17 Care Management Progress Note S/O: Carmen is lying in bed talking on the phone when this writer editor visits, she is receptive to discussion. Carmen states that she is doing well today, though that she wants answers in regards to what is going on with her medically. Carmen is scheduled to have an EEG today, and per morning report will potentially no longer require telemetry monitoring. A: 58 y/o female admitted 06/22/18 for altered mental status; aphasia P: Carmen will return home with no anticipated services when medically cleared. She will F/U with PCP and plan of care as prescribed. She will transport via private vehicle with her friend.
--- NOTE | 2018-06-25 13:27 | CMPROGNOTE_ITS ---
- If Service Date Differs Date of service: 06/25/18 Time of Service: 13:17 Care Management Progress Note S/O: Carmen is lying in bed talking on the phone when this telegraphic typewriter mechanic visits, she is receptive to discussion. Carmen states that she is doing well today, though that she wants answers in regards to what is going on with her medically. Carmen is scheduled to have an EEG today, and per morning report will potentially no longer require telemetry monitoring. A: 58 y/o female admitted 06/22/18 for altered mental status; aphasia P: Carmen will return home with no anticipated services when medically cleared. She will F/U with PCP and plan of care as prescribed. She will transport via private vehicle with her friend.
[2018-06-25 15:20] VITALS: BP 136/74; PULSE 60; RESP 14; TEMP 36.6; O2SAT 98
[2018-06-25] MEDS: Acetaminophen 325 MG TAB PO (15:30)
--- NOTE | 2018-06-25 17:02 | W.PM.DS.N ---
Date of service: 06/25/18 Time of Service: 17:02 DS: Diagnosis Discharge Diagnosis (1) Confusion: Status: Acute Discharge Plan Disposition Patient Disposition: HOME Condition: Improving Discharge Details Reason For Visit: ALTERED MENTAL STATUS;APHASIA Admit Date/Time: 06/24/18 17:20 Admit Provider: Ky Cash Attending Provider: Ky Cash Primary Care Provider: [facility] Course Hospital Course: Carmen Portillo is a 58 year old female with a past medical history significant for Bipolar I disorder, hypertension, hyperlipidemia, obesity, gout, psoriasis, overactive bladder, and spinal stenosis. Who presented to the emergency department on 06/22/2018 with reports of word finding difficulties and difficulty typing the words that she was attempting to type. Workup in the ED was fairly unremarkable, with essentially normal lab work with the exception of a mildly low TSH of 0.28, and a minimal elevation in lithium levels at 1.43. CT of the head, followed by CT angiogram of the head and neck were both interpreted as without evidence of acute abnormality. EKG showed NSR with TW inversions in I/AVL and PRWP, but also with a negative troponin. Mrs. Castillo was also noted to be slightly confused although very appropriate, unable to verify the exact date, her birthdate, or the year. Suspicion was for potential CVA/TIA, and the patient was referred for admission for further evaluation and treatment. She went on to have an echocardiogram which showed an atheromatous plaque on the ascending aorta, raising concern for acute CVA/TIA, possibly embolic. Brain MRI showed No evidence of an acute infarct or intracranial hemorrhage. She had and EEG which was abnormal due to intermittent generalized delta and theta slowing, suggestive of a mild diffuse cerebral encephalopathy of broad differential including toxic-metabolic etiology, excessive sleepiness, etc. No focal regions of cerebral dysfunction or epileptiform activity was present. She was initiated on high potency statin therapy and antiplatelet therapy. She was seen by Neurology who felt that she had improved significantly and felt that she was safe for discharge home with follow up in the Neurology clinic. Dr. Manley will consider repeat MRI with contrast. Her TSH currently low, with prior value grossly elevated in October 2017. Decreased dose, and recommend repeat TSH in the near future as an outpatient. There was discussion that her medications could possibly be exacerbating her symptoms. She was in [facility] She will be referred to follow up with [facility] as an outpatient. She sees a therapist, she has not seen a Psychiatrist in at least 3 years by her account. By the day of discharge, her word finding difficulties had improved significantly. She was oriented x3. She was using the telephone without difficulty. She will require close follow up as an outpatient. Home Meds and New Rx's Prescriptions: New atorvastatin [Lipitor] 40 mg Tablet 40 mg PO QPM Qty: 30 RF: 0 acetaminophen [Tylenol] 325 mg Tablet 325 - 650 mg PO Q4H PRN PRNQty: 0 RF: 0 aspirin 81 mg Tablet,Delayed Release (Dr/Ec) 81 mg PO DAILY Qty: 30 RF: 0 folic acid 1 mg Tablet 1 mg PO DAILY Qty: 30 RF: 0 Continued Otezla 30 mg tablet 30 mg PO BID RF: 0 amiloride 5 mg tablet 5 mg PO DAILY Qty: 90 RF: 3 clonazepam 0.5 mg tablet 0.5 mg PO HS Qty: 30 RF: 2 indomethacin 50 mg capsule 50 mg PO TID PRN (Reason: gout attack) Qty: 30 RF: 0 oxybutynin chloride 10 mg tablet extended release 24hr 10 mg PO DAILY Qty: 90 RF: 4 cyanocobalamin (vitamin B-12) [Vitamin B-12] 1,000 MCG tablet extended release 1,000 mcg PO 3X/WEEK Qty: 36 RF: 4 red yeast rice 600 MG tablet 1 tab PO BID RF: 0 senna 8.6 MG capsule 1 tab-cap PO BID PRNRF: 0 docusate sodium [Colace] 100 MG capsule 1 cap PO DAILY PRNRF: 0 triamcinolone acetonide 15 GM cream Topical BID Qty: 30 RF: 3 fluocinonide 60 GM ointment Topical BID Qty: 60 RF: 4 ziprasidone HCl 20 MG capsule 20 mg PO DAILY Qty: 90 RF: 4 mirtazapine 7.5 MG tablet 2 tab PO HS Qty: 180 RF: 4 levothyroxine 175 MCG tablet 175 mcg PO as directed Qty: 90 RF: 3 lithium carbonate 600 MG capsule 600 mg PO DAILY Qty: 90 RF: 4 lithium carbonate 300 MG capsule 300 mg PO DAILY Qty: 90 RF: 4 ranitidine HCl 150 MG capsule 150 mg PO BID Qty: 180 RF: 4 venlafaxine 75 MG capsule,extended release 24hr 75 mg PO DAILY Qty: 90 RF: 3 venlafaxine 150 MG capsule,extended release 24hr 150 mg PO DAILY Qty: 90 RF: 4 calcitriol [Rocaltrol] 0.25 mcg capsule 0.25 mcg PO 3 x wkly Qty: 12 RF: 4 methylphenidate HCl 20 mg tablet 20 mg PO DAILY MDD 20 mg Qty: 30 RF: 0 Changed celecoxib [Celebrex] 100 MG capsule 100 mg PO BID PRNQty: 180 RF: 0 Discontinued ibuprofen [Motrin IB] 200 MG tablet 3 tab PO TID PRNRF: 0 levothyroxine 200 MCG tablet 200 mcg PO As Dirrected Qty: 36 RF: 4 Discharge Instructions Instructions: Altered Mental Status (GEN) Additional Instructions: Call you PCP office to set up a follow up appointment for the next 1-2 weeks. Neurology will call you to set up follow up (Dr. Manley), if you do not hear from them in the next couple of days, call their office. We have sent a referral to Dr. Queen, Psychiatrist. If you do not hear from her office, check with your PCP. Take your medications as usual. Start taking Aspirin, atorvastatin, folate (level was low). Avoid NSAIDs (like ibuprofen and indomethacin) as they are not good for your kidneys. Take care! Activity:: Activity as Tolerated Equipment/Supplies:: No Equipment Needed Diet:: Heart healthy Discharge Orders Discharge Orders: Discharge Order (Routine); Ordered 06/25/18 Ordered By: Karol Charles Exam Narrative Exam Narrative: General: Patient appears comfortable, AAOX3, NAD Neck: Supple, no JVD CV: Regular, nontachycardic, S1S2, No rubs, murmurs, or gallops. Pulmonary: Clear to auscultation bilaterally, no crackles, wheezing, or rhonchi Abdomen: + Bowel Sounds, soft, nontender, nondistended Vascular: No lower extremity edema Psych: Normal mood and affect. DS: Data Vitals/I&O Vitals and I&O: Vital Signs Temperature 36.6 C 06/25/18 15:20 Temperature Source Tympanic 06/25/18 15:20 Pulse 60 06/25/18 15:20 Pulse Rhythm Regular 06/25/18 15:20 Pulse 71 06/22/18 16:50 Respiratory Rate 14 06/25/18 15:20 Respiratory Effort Non-Labored 06/25/18 15:20 Respiratory Depth Normal 06/25/18 15:20 Respiratory Pattern Normal 06/25/18 15:20 Blood Pressure 136/74 06/25/18 15:20 Blood Pressure Mean 111 06/22/18 16:46 Blood Pressure Position Supine 06/22/18 12:09 Pulse Oximetry 98 06/25/18 15:20 Oxygen Delivery Method Room Air 06/25/18 15:20 Oxygen Flow Rate 0 06/25/18 15:20 Pain Level 5 06/25/18 15:20 Comment 06/23/18 07:53 Intake & Output 06/24/18 06/25/18 06/25/18 23:59 11:59 23:59 Intake Total 2070 / 2430 1816.667 / 2116.667 300 / 2116.667 Output Total 700 / 1700 750 / 750 Balance 1370 / 730 1066.667 / 1366.667 300 / 1366.667 Intake: IV 1020 / 1020 1366.667 / 1366.667 Oral 1050 / 1410 450 / 750 300 / 750 Output: Urine 700 / 1700 750 / 750 Other: Urine Color Pale Yellow Yellow Yellow Urine Appearance Clear Clear Clear Urine Odor None None Comment measuring device in toilet emptied. pt voiding ad felix in bathroom; urine not assessed Voiding Methods Toilet Toilet Toilet Completed studies during hospitalization [Text1]: 06/22/18: CT BRAIN: Noncontrast. No priors. There is normal roberts/white matter differentiation. The ventricles and sulci are consistent with the patient's age. No acute infarct, midline shift, mass effect or hemorrhage is seen. The ventricles are intact. The basilar cisterns are patent. The visualized paranasal sinuses are clear. The mastoid air cells are well pneumatized. There do appear to be post surgical changes involving the right mastoid air cells. The calvarium is intact. IMPRESSION: No acute intracranial process. Follow up as clinically appropriate. CTA OF THE HEAD AND NECK: CT angiography was performed with multi slice acquisition and multi planar and 3D reconstruction. CT ANGIOGRAPHY OF THE NECK: The visualized thoracic aorta is unremarkable. The common carotid arteries are unremarkable. No evidence of occlusion, dissection or significant stenosis. There is mild atherosclerosis seen at the proximal internal carotid arteries bilaterally. No occlusion, dissection or significant stenosis is visualized. The external carotid arteries are unremarkable without evidence of occlusion or significant stenosis. The vertebral arteries are unremarkable. No evidence of occlusion or significant stenosis is seen. No acute abnormality is seen in the soft tissues. There are moderate degenerative changes seen throughout the cervical spine with varying degrees of disc space, endplate sclerosis and osteophytosis. The visualized paranasal sinuses are clear. IMPRESSION: No acute cervical arterial abnormality. CT ANGIOGRAPHY OF THE HEAD: There is mild atherosclerosis seen in the cavernous portion of the internal carotid arteries but no evidence of occlusion, stenosis or aneurysm is seen. The anterior cerebral arteries are unremarkable without evidence of aneurysm, occlusion or significant stenosis. The middle cerebral arteries are unremarkable without evidence of aneurysm, occlusion or significant stenosis. The posterior cerebral arteries are unremarkable without evidence of occlusion, aneurysm or significant stenosis. The distal vertebral arteries and basilar artery are unremarkable without evidence of dissection, occlusion, aneurysm or significant stenosis. IMPRESSION: No evidence of arterial abnormality in the brain. 06/23/18: Transthoracic Echocardiography M-mode, complete 2D, complete spectral Doppler, and color Doppler *STUDY CONCLUSIONS* Summary: 1. Left ventricle: The cavity size was normal. Wall thickness was increased in a pattern of mild LVH. Systolic function was normal. The estimated ejection fraction was 55-60%. Wall motion was normal; there were no regional wall motion abnormalities. Doppler parameters are consistent with high ventricular filling pressure. 2. Aortic valve: Trileaflet; normal thickness leaflets. There was trivial regurgitation. 3. Aorta: There was localized, fixed, 0.4cm (thick), 0.7cm (L) atheromatous plaque in the proximal ascending aorta. 4. Mitral valve: There was mild regurgitation. 5. Right ventricle: The cavity size was normal. Wall thickness was normal. Systolic function was normal. Recommendations: Repeat echo in 6 months to re-assess atheroma. 06/24/18: CT BRAIN, NONCONTRAST: Comparison is 06/22/18. There is patient motion artifact, which does limit the examination. The ventricles and sulci are consistent with the patient's age. The diffusion weighted images show no evidence of an acute infarct. No intracranial hemorrhage is seen. The ventricles are intact. The basilar cisterns are patent. No acute midline shift or mass effect is identified. There is a flow void seen in the [place]. The pithiatry gland is unremarkable. The visualized paranasal sinuses are clear. IMPRESSION: No evidence of an acute infarct or intracranial hemorrhage. Labs on day of discharge: Labs from last 24 hours 06/25/18 06/25/18 06/25/18 06:51 06:51 06:51 WBC 6.06 RBC 3.70 L Hgb 11.4 L Hct 34.4 L MCV 93.0 MCH 30.8 MCHC 33.1 RDW 13.8 Plt Count 217 MPV 10.0 Immature Gran % 0.2 Neutrophils % 74.5 Lymphocytes % 17.0 Monocytes % 4.8 Eosinophils % 3.3 Basophils % 0.2 Absolute Neutrophils 4.52 Absolute Lymphocytes 1.03 L Absolute Monocytes 0.29 Absolute Eosinophils 0.20 Absolute Basophils 0.01 Sodium 142 Potassium 4.5 Chloride 110 H Carbon Dioxide 23.6 Anion Gap 8.4 BUN 19 H Creatinine 1.23 H Estimated GFR/1.73 m2 44.69 Glucose 102 H Calcium 9.1 Magnesium 2.1 Vitamin B12 Folate [place] 0.99 06/24/18 16:20 WBC RBC Hgb Hct MCV MCH MCHC RDW Plt Count MPV Immature Gran % Neutrophils % Lymphocytes % Monocytes % Eosinophils % Basophils % Absolute Neutrophils Absolute Lymphocytes Absolute Monocytes Absolute Eosinophils Absolute Basophils Sodium Potassium Chloride Carbon Dioxide Anion Gap BUN Creatinine Estimated GFR/1.73 m2 Glucose Calcium Magnesium Vitamin B12 338 Folate 7.6 L [place] [facility] Medical History Expressive aphasia (Acute) Venous insufficiency of both lower extremities (Chronic) Stasis dermatitis of both legs (Chronic) Tinnitus of both ears (Chronic 11/11/13) Spinal stenosis (Chronic) Rosacea (Chronic) Psoriasis (Chronic 03/13/17) Overactive bladder (Chronic 10/03/17) Obesity (Chronic) Mixed conductive and sensorineural hearing loss of right ear with restricted hearing of left ear (Chronic 12/31/16) Lichen sclerosus et atrophicus (Chronic 03/12/12) Knee pain, chronic (Chronic) Hypothyroidism (acquired) (Chronic) Hypertensive retinopathy of both eyes, grade 1 (Chronic) Hyperlipidemia (Chronic 12/02/12) Hidradenitis (Chronic) Hiatal hernia (Chronic) Gout (Chronic 02/17/13) Essential hypertension (Chronic 02/17/13) Chronic renal impairment (Chronic 02/17/13) Cardiac murmur (Chronic 03/06/03) Bipolar I disorder (Chronic) Surgical History Abdominal hysterectomy (~2002) Arthroplasty of knee Bilateral salpingectomy with oophorectomy (~2002) Cholecystectomy Dilation and curettage EXOSTECTOMY MASTOIDECTOMY Open Carpal Tunnel release SALIVARY SURGERY VOCAL CORD SURGERY Family History Mother Diabetes Essential hypertension Depression Heart disease Hyperlipidemia Stroke Father Essential hypertension Heart disease Hyperlipidemia Sister Depression Brother Depression Brother No problems noted. 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
--- NOTE | 2018-06-25 17:35 | PGE_ITS ---
Date of Service Date of service: 06/25/18 Time of Service: 16:32 Assessment and Plan (1) Confusion: Current visit: No Status: Acute Ms. Portillo is a 58 year-old, right-handed woman who was admitted with waxing/waning language production difficulties along with a 2-3 week history of confusion/altered mental status, RUE weakness, imbalance, difficulty using technology, memory loss, headaches, and increased tremor. Her initial neurological exam was consistent with disorientation, a Parkinsonian tremor, as well as asterixis. Her disorientation has resolved today and her tremor is much improved. I am not sure that we know the etiology of Ms. Portillo's symptoms. -Pertinent positives include: mildly elevated lithium levels that seemed to correlate with symptoms; TSH 0.28; B12 338; EEG with mild generalized slowing supporting either a toxic-metabolic etiology vs increased sleepiness; -Pertinent negatives include: no acute ischemia on brain MRI; no signs of infection (afebrile, normal WBCs, normal UA); Recommendations: -Monitor symptoms at follow-up; if persisting, get brain MRI with contrast -B12 and folate supplementation +/- B1 supplementation -Outpatient psychiatry consultation for medication recommendations and evaluation of symptoms The above plan was discussed with the patient and she was agreeable. She should follow-up in 4-6 weeks in the neurology clinic. Subjective Interval history since last seen: Ms. Portillo is reportedly back to her baseline today. She still reports subtle speech difficulties and was able to use a telephone today. She is not sure if she could use a computer or the printer/copier at work Her tremor is slightly better today. Of note, her li thium level is back within normal range today. She wonders if her new diet could have caused her symptoms. This doesn't seem likely. I was able to review her brain MRI in depth today. It was read as normal. There was a subtle blush in the right cerebellum/cerebellar peduncle on [place]air. I reviewed with Dr. Lopez who wasn't sure what it was - possible something old. We discussed a possible contrasted study, but as her symptoms are resolving I am not sure how clinically relevant this finding is. She had an EEG earlier today which showed mild generalized slowing only. Her B12 level was low at 338. Her folate was also low at 7.6. She has headaches approximately 2-4x per week. Her headache frequency increased this winter after starting her psoriasis medication (starts with o). Exam Narrative Exam Narrative: Physical Exam: Constitutional: Patient of apparent stated age, well nourished, well developed, no acute distress Neuro: MS/Language/Speech: Alert, orientedx3; knew her age today; naming and comprehension intact; had some stuttering slowed speech; CN: no facial asymmetry, hearing intact to whisper Motor: Normal bulk and tone. FMM intact, no pronator drift. +asterixis. Tremor less prominent today. R pill-rolling tremor with R>L mild postural tremor. Coordination: Finger to nose performed with mild bilateral UE dysmetria Gait: Deferred Objective Objective Clinical Data: Abnormal lab results 06/24/18 06/25/18 06/25/18 Range/Units 16:20 06:51 06:51 RBC 3.70 L (4.00-5.20) m/cumm Hgb 11.4 L (12.0-15.5) g/dL Hct 34.4 L (36.0-46.0) % Absolute Lymphocytes 1.03 L (1.2-3.4) k/cumm Chloride 110 H (98-107) mmol/L BUN 19 H (7-18) mg/dL Creatinine 1.23 H (0.55-1.02) mg/dL Glucose 102 H (70-100) mg/dL Folate 7.6 L (8.6-20.0) ng/mL Vital Signs Temperature 36.6 C 06/25/18 15:20 Temperature Source Tympanic 06/25/18 15:20 Pulse 60 06/25/18 15:20 Pulse Rhythm Regular 06/25/18 15:20 Pulse 71 06/22/18 16:50 Respiratory Rate 14 06/25/18 15:20 Respiratory Effort Non-Labored 06/25/18 15:20 Respiratory Depth Normal 06/25/18 15:20 Respiratory Pattern Normal 06/25/18 15:20 Blood Pressure 136/74 06/25/18 15:20 Blood Pressure Mean 111 06/22/18 16:46 Blood Pressure Position Supine 06/22/18 12:09 Pulse Oximetry 98 06/25/18 15:20 Oxygen Delivery Method Room Air 06/25/18 15:20 Oxygen Flow Rate 0 03/21/19 15:20 Pain Level 5 06/25/18 15:20 Comment 06/23/18 07:53 Intake & Output 06/24/18 06/25/18 06/25/18 23:59 11:59 23:59 Intake Total 2070 / 2430 1816.667 / 2116.667 300 / 2116.667 Output Total 700 / 1700 750 / 750 Balance 1370 / 730 1066.667 / 1366.667 300 / 1366.667 Intake: IV 1020 / 1020 1366.667 / 1366.667 Oral 1050 / 1410 450 / 750 300 / 750 Output: Urine 700 / 1700 750 / 750 Other: Urine Color Pale Yellow Yellow Yellow Urine Appearance Clear Clear Clear Urine Odor None None Comment measuring device in toilet emptied. pt voiding ad felix in bathroom; urine not assessed Voiding Methods Toilet Toilet Toilet Laboratory Results WBC 6.06 k/cumm (4.4-10.8) 06/25/18 06:51 RBC 3.70 m/cumm (4.00-5.20) L 06/25/18 06:51 Hgb 11.4 g/dL (12.0-15.5) L 06/25/18 06:51 Hct 34.4 % (36.0-46.0) L 06/25/18 06:51 MCV 93.0 fL (80-95) 06/25/18 06:51 MCH 30.8 pg (27.0-33.0) 06/25/18 06:51 MCHC 33.1 g/dL (32.0-36.0) 06/25/18 06:51 RDW 13.8 % (11.7-14.6) 06/25/18 06:51 Plt Count 217 x1000/uL (130-400) 06/25/18 06:51 MPV 10.0 fL (8.0-11.0) 06/25/18 06:51 Immature Gran % 0.2 06/25/18 06:51 Neutrophils % 74.5 06/25/18 06:51 Lymphocytes % 17.0 06/25/18 06:51 Monocytes % 4.8 06/25/18 06:51 Eosinophils % 3.3 06/25/18 06:51 Basophils % 0.2 06/25/18 06:51 Absolute Neutrophils 4.52 k/cumm (1.2-6.7) 06/25/18 06:51 Absolute Lymphocytes 1.03 k/cumm (1.2-3.4) L 06/25/18 06:51 Absolute Monocytes 0.29 k/cumm (0.11-0.7) 06/25/18 06:51 Absolute Eosinophils 0.20 k/cumm (0.0-0.7) 06/25/18 06:51 Absolute Basophils 0.01 k/cumm (0.0-0.2) 06/25/18 06:51 Sodium 142 mmol/L (136-145) 06/25/18 06:51 Potassium 4.5 mmol/L (3.5-5.1) 06/25/18 06:51 Chloride 110 mmol/L (98-107) H 06/25/18 06:51 Carbon Dioxide 23.6 mmol/L (21.0-32.0) 06/25/18 06:51 Anion Gap 8.4 mmol/L (3-11) 06/25/18 06:51 BUN 19 mg/dL (7-18) H 06/25/18 06:51 Creatinine 1.23 mg/dL (0.55-1.02) H 06/25/18 06:51 Estimated GFR/1.73 m2 44.69 (mL/min/1.73m2) 06/25/18 06:51 Glucose 102 mg/dL (70-100) H 06/25/18 06:51 Hemoglobin A1c 5.0 % (4.5-6.2) 06/23/18 07:00 Calcium 9.1 mg/dL (8.5-10.1) 06/25/18 06:51 Magnesium 2.1 mg/dL (1.8-2.4) 06/25/18 06:51 Total Bilirubin 0.3 mg/dL (0.2-1.0) 06/22/18 13:50 AST 22 U/L (15-37) 06/22/18 13:50 ALT 27 U/L (12-78) 06/22/18 13:50 Alkaline Phosphatase 120 U/L (46-116) H 06/22/18 13:50 Ammonia 16 umol/L (11-32) 06/24/18 16:20 Troponin I 0.02 ng/mL (0.00-0.06) 06/23/18 07:00 Total Protein 7.1 g/dL (6.4-8.2) 06/22/18 13:50 Albumin 3.2 g/dL (3.4-5.0) L 06/22/18 13:50 Triglycerides 216 mg/dL (30-150) H 06/23/18 07:00 Total Cholesterol 213 mg/dL (50-200) H 06/23/18 07:00 LDL Cholesterol Direct 128 mg/dL (<100) H 06/23/18 07:00 HDL Cholesterol 54 mg/dL (40-60) 06/23/18 07:00 Vitamin B12 338 pg/mL (193-986) 06/24/18 16:20 Folate 7.6 ng/mL (8.6-20.0) L 06/24/18 16:20 TSH 0.28 uIU/mL (0.358-3.74) L 06/22/18 13:50 Urine Color Straw (Yellow) 06/22/18 13:35 Urine Clarity Clear 06/22/18 13:35 Urine pH 7.0 (5-8) 06/22/18 13:35 Ur Specific [place] 1.010 (1.005-1.025) 06/22/18 13:35 Urine Protein 30 mg/dL (Negative) H 06/22/18 13:35 Urine Ketones Negative mg/dL (Negative) 06/22/18 13:35 Urine Blood Negative (Negative) 06/22/18 13:35 Urine Nitrite Negative (Negative) 06/22/18 13:35 Urine Bilirubin Negative (Negative) 06/22/18 13:35 Urine Urobilinogen 0.2 EU/dL (Up TO 0.2) 06/22/18 13:35 Ur Leukocyte Esterase Negative (Negative) 06/22/18 13:35 Urine RBC Negative (0-2) 06/22/18 13:35 Urine WBC 3-5 HPF (0-5) 06/22/18 13:35 Ur Epithelial Cells Many HPF (Negative) 06/22/18 13:35 Urine Crystals Negative HPF (Negative) 06/22/18 13:35 Urine Bacteria Rare HPF (Negative) 06/22/18 13:35 Urine Casts Negative LPF (Negative) 06/22/18 13:35 Urine Mucus Negative (Negative) 06/22/18 13:35 Ur Culture Indicated? No 06/22/18 13:35 Urine Glucose Negative mg/dL (Negative) 06/22/18 13:35 [place] 0.99 mmol/L (0.60-1.20) 06/25/18 06:51
[2018-06-26 11:08] LABS: Syphilis Serology (RPR) Negative (Negative)
== END 2018-06-25 18:15 | disposition home or self-care (01) | DRG 948 ==
LOC: ER 16:54 → MS 17:13
PROVIDERS: Admitting Provider Internal Medicine; Emergency Provider Emergency Medicine; PCP Family Medicine; Visit Provider Internal Medicine
DX: R41.0 Disorientation, unspecified (principal); F31.9 Bipolar disorder, unspecified; R94.31 Abnormal electrocardiogram [ECG] [EKG]; R94.01 Abnormal electroencephalogram [EEG]; I10 Essential (primary) hypertension; I70.0 Atherosclerosis of aorta; E03.9 Hypothyroidism, unspecified; E78.5 Hyperlipidemia, unspecified
CPT/HCPCS: 95819; 36410; 36415; 36416; 70496; 70498; 80048; 80053; 80061; 82962; 83721; 93005; 96360; 99223; 99232; 99233; 99239; 99255; 99285; J1650; 70450; 70551; 80178; 81003; 81015; 82140; 82607; 82746; 83036; 83735; 84443; 84484; 85025; 86592; 93010; 93306; 99220; 99226; G0378; J2060; J3490

== ENCOUNTER 2018-08-04 01:42 | Outpatient (CLI) | payer BC, SELFPAY ==
[2018-08-04 14:54] LABS: Lithium 1.09 mmol/L (0.60-1.20)
== END 2018-08-04 02:02 ==
PROVIDERS: PCP Family Medicine; Visit Provider Psychiatry & Neurology Neurology
DX: F31.9 Bipolar disorder, unspecified (principal); Z51.81 Encounter for therapeutic drug level monitoring
CPT/HCPCS: 36415; 80178

== ENCOUNTER 2018-09-14 01:43 | Outpatient (CLI) | payer BC, SELFPAY ==
--- NOTE | 2018-09-14 14:54 | DI.RAD_ITS ---
SYMPTOM/DIAGNOSIS: DYSPNEA ON EXERTION R06.09 CHEST X-RAY: PA and lateral. Comparison 06/03/13. The heart is normal in size. The lungs are clear. The mediastinal structures and pleura appear intact. CONCLUSION: Normal chest.
== END 2018-09-14 02:03 ==
PROVIDERS: PCP Family Medicine; Visit Provider Emergency Medicine
DX: R06.09 Other forms of dyspnea (principal)
CPT/HCPCS: 71046

== ENCOUNTER 2019-01-28 08:40 | Outpatient (CLI) | payer BC, SELFPAY ==
[2019-01-28 15:10] LABS: HCT 34.7 % (36.0-46.0); HGB 11.3 g/dL (12.0-15.5); Mean Corp. HGB Concentration 32.6 g/dL (32.0-36.0); Mean Corpuscular Hemoglobin 29.9 pg (27.0-33.0); Mean Corpuscular Volume 91.8 fL (80-95); Mean Platelet Volume 9.8 fL (8.0-11.0); Platelet Count 210 x1000/uL (130-400); RBC 3.78 m/cumm (4.00-5.20); RBC Distribution Width 14.1 % (11.7-14.6); White Blood Cell Count 8.06 k/cumm (4.4-10.8)
[2019-01-28 16:01] LABS: Lithium 0.81 mmol/L (0.60-1.20)
[2019-01-28 16:21] LABS: TSH 0.92 uIU/mL (0.36-3.74)
[2019-01-28 16:51] LABS: Folate > 20.0 ng/mL (8.6-20.0)
== END 2019-01-28 09:00 ==
PROVIDERS: PCP Family Medicine; Visit Provider Family Medicine
DX: F31.9 Bipolar disorder, unspecified (principal); Z51.81 Encounter for therapeutic drug level monitoring; Z79.899 Other long term (current) drug therapy; L40.9 Psoriasis, unspecified
CPT/HCPCS: 36415; 85027; 80178; 82746; 84443

== ENCOUNTER 2020-03-22 01:23 | Outpatient (CLI) | payer OTHER, SELFPAY ==
[2020-03-22 09:44] LABS: HCT 38.7 % (36.0-46.0); HGB 12.3 g/dL (11.2-15.7); MCH 28.9 pg (27.0-33.0); MCHC 31.8 % (32.0-36.0); MCV 91.1 fL (80-95); MPV 10.2 fL (8.0-11.0); Platelet Count 278 10^3/uL (130-400); RBC 4.25 10^6/uL (3.93-5.22); RDW 13.9 % (11.7-14.6); RDW-SD 46.5 fL; WBC 8.55 10^3/uL (4.4-10.8)
[2020-03-22 09:45] LABS: Bilirubin Negative (Negative); Blood Trace-intact (Negative); Clarity Clear (Clear); Glucose Negative (Negative); Ketones Negative (Negative); Leukocyte Esterase Negative (Negative); Nitrite Negative (Negative); Specific Gravity 1.015 (1.005-1.025); Urobilinogen 0.2 EU/dL (Up TO 0.2); pH 6.5 (5-8)
[2020-03-22 09:57] LABS: Bacteria Few HPF (Negative); C & S Indicated? No/Sq. Contamination; Casts Negative LPF (Negative); Crystals Negative HPF (Negative); Epithelial Cells Many HPF (Negative); Mucus Negative (Negative); WBC 0-2 HPF (0-5)
[2020-03-22 10:56] LABS: ALT 94 U/L (14-59); AST 38 U/L (15-37); Alkaline Phosphatase 169 U/L (46-116); Anion Gap 8.8 mmol/L (3-11); BUN 34 mg/dL (7-18); Bilirubin, Total 0.2 mg/dL (0.2-1.0); CO2 24.2 mmol/L (21.0-32.0); CREATININE 1.31 mg/dL (0.55-1.02); Calcium 8.7 mg/dL (8.5-10.1); Calculated LDL 126 mg/dL (<100); Chloride 109 mmol/L (98-107); Cholesterol 209 mg/dL (<200); Estimated GFR 41.28 (mL/min/1.73m2); Glucose 111 mg/dL (74-106); HDL Cholesterol 64 mg/dL (40-60); Potassium 4.9 mmol/L (3.5-5.1); Sodium 142 mmol/L (136-145); TSH 0.47 uIU/mL (0.36-3.74); Total Protein 6.4 g/dL (6.4-8.2); Triglyceride 95 mg/dL (<150)
== END 2020-03-22 01:43 ==
PROVIDERS: PCP Family Medicine; Visit Provider Family Medicine
DX: E78.5 Hyperlipidemia, unspecified (principal); E03.9 Hypothyroidism, unspecified; F31.9 Bipolar disorder, unspecified; R39.11 Hesitancy of micturition
CPT/HCPCS: 36415; 80053; 80061; 85027; 81003; 81015; 84443

== ENCOUNTER 2020-04-11 12:13 | Outpatient (REF) | payer OTHER, SELFPAY ==
[2020-04-11 21:22] LABS: ALT 50 U/L (14-59); AST 22 U/L (15-37); Albumin 2.9 g/dL (3.4-5.0); Alkaline Phosphatase 162 U/L (46-116); Bilirubin, Direct < 0.05 mg/dL (0.00-0.20); Bilirubin, Total 0.3 mg/dL (0.2-1.0); Total Protein 6.3 g/dL (6.4-8.2)
== END 2020-04-11 12:33 ==
LOC: LBN 12:13
PROVIDERS: PCP Family Medicine; Visit Provider Emergency Medicine
DX: R79.89 Other specified abnormal findings of blood chemistry (principal)
CPT/HCPCS: 80076; 86704; 86709; 86803; 87340; 80178

== ENCOUNTER 2020-04-12 09:21 | Outpatient (CLI) | payer OTHER, SELFPAY ==
[2020-04-12 12:20] LABS: Lithium 1.11 mmol/L (0.60-1.20)
== END 2020-04-12 09:41 ==
PROVIDERS: PCP Family Medicine; Visit Provider Family Medicine
DX: F31.9 Bipolar disorder, unspecified (principal); Z51.81 Encounter for therapeutic drug level monitoring
CPT/HCPCS: 36415; 80178

== ENCOUNTER 2020-04-15 13:11 | Emergency (ER) | payer OTHER, SELFPAY ==
[2020-04-15 13:18] VITALS: BP 142/82; PULSE 61; RESP 18; TEMP 36.7; O2SAT 100
[2020-04-15 13:38] LABS: Bilirubin Negative (Negative); Blood Trace-intact (Negative); Clarity Sl Cloudy (Clear); Glucose Negative (Negative); Ketones Negative (Negative); Leukocyte Esterase Negative (Negative); Nitrite Negative (Negative); Urobilinogen 0.2 EU/dL (Up TO 0.2)
--- NOTE | 2020-04-15 13:44 | ED.GENADUL_ITS ---
Discharge Plan Disposition Patient Disposition: HOME Condition: Improving Discharge Details Clinical Impression: Liver mass Primary Care Provider: Messi García ED Provider: Chaitanya Fink Home Meds and New Rx's Prescriptions: Continued Otezla 30 mg tablet 30 mg PO BID RF: 0 Flucelvax Quad [id number] 60 mcg (15 mcg x 4)/0.5 mL suspension 0.5 ml IM ONCE Qty: 0.5 RF: 0 oxybutynin chloride 15 mg tablet extended release 24hr 15 mg PO DAILY Qty: 90 RF: 4 cyanocobalamin (vitamin B-12) [Vitamin B-12] 1,000 MCG tablet extended release 1,000 mcg PO 3X/WEEK Qty: 36 RF: 4 senna 8.6 MG capsule 1 tab-cap PO BID PRNRF: 0 triamcinolone acetonide 15 GM cream 0 Topical BID Qty: 30 RF: 3 fluocinonide 60 GM ointment 0 Topical BID Qty: 60 RF: 4 indomethacin 50 mg capsule 50 mg PO TID PRN (Reason: gout attack) Qty: 30 RF: 0 lithium carbonate 600 mg capsule 600 mg PO DAILY Qty: 90 RF: 4 amiloride 5 mg tablet 5 mg PO DAILY Qty: 90 RF: 3 atorvastatin [Lipitor] 40 mg tablet 40 mg PO QPM Qty: 90 RF: 4 levothyroxine 175 mcg tablet 175 mcg PO as directed Qty: 90 RF: 3 cimetidine 800 mg tablet 800 mg PO BID Qty: 180 RF: 4 mirtazapine 7.5 mg tablet 15 mg PO HS Qty: 180 RF: 4 venlafaxine 150 mg capsule,extended release 24hr 150 mg PO DAILY Qty: 90 RF: 4 venlafaxine 75 mg capsule,extended release 24hr 75 mg PO DAILY Qty: 90 RF: 3 lithium carbonate 150 mg capsule 150 mg PO DAILY Qty: 90 RF: 4 levothyroxine 200 mcg tablet 200 mcg PO As Dirrected Qty: 36 RF: 4 Latuda 20 mg tablet 20 mg PO DAILY Qty: 30 RF: 2 acetaminophen [Tylenol] 325 mg Tablet 325 - 650 mg PO Q4H PRN PRNQty: 0 RF: 0 Discharge Instructions Additional Instructions: We will ensure that your follow-up for Dr. Fragoso is in place this week. Continue your regular medications. Observe a bland diet. May use the provided Ultram, if needed for severe or breakthrough pain. Return for any acute concerns. Medical Decision Making This is a 60-year-old female who presents from home with weeks of right flank discomfort. She initially saw Dr. García in the office with plans for outpatient ultrasound were made. She comes in today due to persistent pain and feeling like she cannot wait for pending outpatient work-up. Vital signs are reassuring. She is tender overlying the right flank. Differential diagnosis is broad and would include renal colic, UTI, mass or obstruction. IV access established, patient given ketorolac and a fluid bolus. She is referred for CT images. Labs note white count 9, hematocrit 39, platelets 286. Sodium 140, potassium 4.3, BUN 27, creatinine 1.5, AST 19, ALT 50, alk phos 169, lipase 132. Urinalysis without evidence of UTI but trace blood present. CT reveals a hepatic mass with question of neoplastic seeding of the hepatic serosa, right hemidiaphragm or both. Case discussed with Dr. Rutherford who is on- call for the patient's primary care. I will have care management arrange outpatient follow-up for the patient with Dr. García in clinic. Discussed with her home management and indications to return. She requests a small number of oral analgesics for home and was consented for the use of a small number of opioid analgesics. HPI General Mode of arrival: ambulatory . Date/Time Provider Initiated Documentation: 04/15/20 13:12 . Limitations to Documentation: no limitations . Information obtained by: patient . History of Present Illness 60 year old F presents to the emergency department with the chief complaint of Right flank pain for 2 weeks, described as moderate, Quality is described as dull, and is localized to the back and right. Patient reports radiation to back and abdomen. Patient started experiencing this day(s) and it has been intermittent. Rest improves symptom(s), Eating worsens symptoms . Patient notes denies fever/chills and loss of appetite. Patient did receive the following treatments prior to arrival, none Related Data Home Medications Medication Instructions Recorded Confirmed cyanocobalamin (vitamin B-12) 1,000 mcg PO 3X/WEEK #36 08/21/12 04/15/20 [Vitamin B-12] senna 1 tab-cap PO BID PRN tab-cap 03/06/15 04/15/20 triamcinolone acetonide 0 TOPICAL BID #30 g 09/07/15 04/11/20 fluocinonide 0 TOPICAL BID #60 g 11/28/15 04/11/20 apremilast 30 mg tablet 30 mg PO BID 05/12/18 04/15/20 acetaminophen [Tylenol] 325 - 650 mg PO Q4H PRN PRN #0 tab 06/25/18 04/15/20 indomethacin 50 mg capsule 50 mg PO TID PRN #30 cap 12/22/18 04/15/20 lithium carbonate 600 mg capsule 600 mg PO DAILY #90 cap 04/08/19 04/15/20 amiloride 5 mg tablet 5 mg PO DAILY #90 tab-cap 07/26/19 04/15/20 atorvastatin 40 mg tablet 40 mg PO QPM #90 tab 08/31/19 04/15/20 levothyroxine 175 mcg tablet 175 mcg PO as directed #90 tab-cap 09/17/19 04/15/20 cimetidine 800 mg tablet 800 mg PO BID #180 tab 09/28/19 04/15/20 oxybutynin chloride 15 mg 15 mg PO DAILY #90 tab 11/29/19 04/15/20 tablet,extended release 24 hr mirtazapine 7.5 mg tablet 15 mg PO HS #180 tab 12/03/19 04/15/20 venlafaxine 150 mg 150 mg PO DAILY #90 tab-cap 12/03/19 04/15/20 capsule,extended release 24 hr venlafaxine 75 mg capsule,extended 75 mg PO DAILY #90 tab-cap 12/03/19 04/15/20 release 24 hr lithium carbonate 150 mg capsule 150 mg PO DAILY #90 cap 03/01/20 04/15/20 levothyroxine 200 mcg tablet 200 mcg PO As Dirrected #36 tab-cap 04/02/20 04/15/20 lurasidone 20 mg tablet 20 mg PO DAILY #30 tab 04/13/20 04/15/20 Previous Rx's Medication Instructions Recorded acetaminophen [Tylenol] 325 - 650 mg PO Q4H PRN PRN #0 tab 06/25/18 indomethacin 50 mg capsule 50 mg PO TID PRN #30 cap 12/22/18 lithium carbonate 600 mg capsule 600 mg PO DAILY #90 cap 04/08/19 amiloride 5 mg tablet 5 mg PO DAILY #90 tab-cap 07/26/19 atorvastatin 40 mg tablet 40 mg PO QPM #90 tab 08/31/19 levothyroxine 175 mcg tablet 175 mcg PO as directed #90 tab-cap 09/17/19 cimetidine 800 mg tablet 800 mg PO BID #180 tab 09/28/19 oxybutynin chloride 15 mg 15 mg PO DAILY #90 tab 11/29/19 tablet,extended release 24 hr mirtazapine 7.5 mg tablet 15 mg PO HS #180 tab 12/03/19 venlafaxine 150 mg 150 mg PO DAILY #90 tab-cap 12/03/19 capsule,extended release 24 hr venlafaxine 75 mg capsule,extended 75 mg PO DAILY #90 tab-cap 12/03/19 release 24 hr lithium carbonate 150 mg capsule 150 mg PO DAILY #90 cap 03/01/20 levothyroxine 200 mcg tablet 200 mcg PO As Dirrected #36 tab-cap 04/02/20 lurasidone 20 mg tablet 20 mg PO DAILY #30 tab 04/13/20 Allergies Allergy/AdvReac Type Severity Reaction Status Date / Time Cephalosporins Allergy Unknown Verified 04/15/20 13:29 haloperidol Allergy Unknown Verified 04/15/20 13:29 indomethacin AdvReac Intermediate dizziness Verified 04/15/20 13:29 quetiapine AdvReac Intermediate RLS Verified 04/15/20 13:29 Butyrophenones AdvReac Unknown Verified 04/15/20 13:29 thioridazine AdvReac Unknown Verified 04/15/20 13:29 General Stated Complaint: Abd Prob SONJA: 3 Review of Systems Narrative: 6 systems reviewed and otherwise negative [facility] Medical History Bilateral impacted cerumen Bipolar I disorder lithium therapy Cardiac murmur (03/06/03) Chronic renal impairment (02/17/13) Essential hypertension (02/17/13) Expressive aphasia Gout (02/17/13) Hiatal hernia Hidradenitis History of tobacco use Hyperlipidemia (12/02/12) Hypertensive retinopathy of both eyes, grade 1 Hypothyroidism (acquired) Knee pain, chronic left Lichen sclerosus et atrophicus (03/12/12) Sasser use Mixed conductive and sensorineural hearing loss of right ear with restricted hearing of left ear (12/31/16) Obesity Overactive bladder (10/03/17) Psoriasis (03/13/17) Rosacea Sciatica Spinal stenosis Sprain of sacroiliac ligament Stasis dermatitis of both legs Tinnitus of both ears (11/11/13) Venous insufficiency of both lower extremities Surgical History Abdominal hysterectomy (~2002) DUB/uterus only removed Arthroplasty of knee B/L Bilateral salpingectomy with oophorectomy (~2002) Cholecystectomy Dilation and curettage EXOSTECTOMY 02/03/15-DORSUM OF LEFT FOOT History of arthroscopy of knee History of bilateral salpingo-oophorectomy History of mastoidectomy MASTOIDECTOMY and tympanoplasty Open Carpal Tunnel release B/L SALIVARY SURGERY salvitory gland infected and removed Status post carpal tunnel release Status post cholecystectomy Status post dilation and curettage Status post foot surgery Status post total abdominal hysterectomy and bilateral salpingo-oophorectomy VOCAL CORD SURGERY cord polyp removed Family History Mother Diabetes Essential hypertension Depression Heart disease Hyperlipidemia Stroke Father Essential hypertension Heart disease Hyperlipidemia Sister Depression Brother Depression Brother No problems noted. Social History Smoking/Tobacco Use Status: Former Tobacco Use Smoking risk assessment performed?: Yes Alcohol Intake: current Alcohol Intake frequency: 0-2 drinks per day Alcohol type: beer Drug use: Never Substance use type: does not use Household members: other Details: SELF current occupation: [employer]MENTS [employer] Pets and animals: Yes Pets and animals: dog(s) Frequency: 1-2 times per week Lian/Amish: Caodaism Special lian needs: No Seatbelt use: sometimes Working smoke detector in home: Yes Carbon monox detector in home: Yes Firearms in home: No Do you feel safe at home: Yes Do you feel safe in your relationship?: Yes Exam Narrative Exam Narrative: GEN: awake, alert, oriented 3. Pleasant, well groomed, interactive. HEAD: Normocephalic, atraumatic ENT: Mucous membranes moist, oropharynx unremarkable, External ear exam unremarkable EYES: PERRL, EOMI NECK: Full ROM, no MOISE, no menigismus CHEST/RESP: Nontender, clear to auscultation bilateral, no wheeze/rhonchi/rales CARDIOVASCULAR: RRR, no murmur, rub laureano. 2+ Rad pulse bilateral ABDOMEN: Soft, nontender, no mass. +Bowel sounds Back: Right paraspinous lower thoracic bow maker machine tender to palpation, no crepitus, no bony step-off EXT: Full ROM, no edema, no rash Neuro: Grossly normal neurologic exam, conversant, interactive. Psych: Speech fluent, thoughts congruent, affect normal Course Vital Signs Vital signs: Vital Signs Temperature 36.7 C 04/15/20 13:18 Pulse 61 04/15/20 13:18 Respiratory Rate 18 04/15/20 13:18 Blood Pressure 142/82 H 04/15/20 13:18 Pulse Oximetry 100 04/15/20 13:18 Temperature 36.7 C 04/15/20 13:18 Temperature Source Temporal Artery Scan 04/15/20 13:18 Pulse 61 04/15/20 13:18 Respiratory Rate 18 04/15/20 13:18 Respiratory Effort Non-Labored 04/15/20 13:27 Blood Pressure 142/82 H 04/15/20 13:18 Blood Pressure Position Sitting 04/15/20 13:18 Pulse Oximetry 100 04/15/20 13:18 Oxygen Delivery Method Room Air 04/15/20 13:18 Oxygen Flow Rate 0 04/15/20 13:18 Pain Level 8 04/15/20 13:18
[2020-04-15 13:46] LABS: Bacteria Few HPF (Negative); Casts Negative LPF (Negative); Crystals Negative HPF (Negative); Epithelial Cells Many HPF (Negative); Mucus Negative (Negative); WBC 0-2 HPF (0-5)
[2020-04-15 13:47] LABS: C & S Indicated? No/Sq. Contamination
[2020-04-15] MEDS: Normal Saline 1,000 ML 125 ML IV (14:00)
[2020-04-15] MEDS: Ketorolac 15 MG/ML VIAL IVP (14:01)
[2020-04-15 14:02] LABS: Abs Immature Grans 0.04 10^3/uL (0.0-0.06); Absolute Basophil Count 0.02 10^3/uL (0.0-0.2); Absolute Eosinophil Count 0.21 10^3/uL (0.0-0.7); Absolute Lymphocyte Count 1.05 10^3/uL (1.2-3.4); Absolute Monocyte Count 0.58 10^3/uL (0.1-0.8); Absolute Neutrophil Count 7.73 10^3/uL (1.2-6.7); Basophils % 0.2; Eosinophils % 2.2; HCT 39.7 % (36.0-46.0); HGB 12.8 g/dL (11.2-15.7); Immature Grans % 0.4; Lymphocytes % 10.9; MCHC 32.2 % (32.0-36.0); MCV 89.8 fL (80-95); MPV 10.2 fL (8.0-11.0); Neutrophils % 80.3; Nucleated RBC 0 %; Platelet Count 286 10^3/uL (130-400); RBC 4.42 10^6/uL (3.93-5.22); RDW 14.3 % (11.7-14.6); RDW-SD 45.7 fL; WBC 9.63 10^3/uL (4.4-10.8)
[2020-04-15 14:14] LABS: ALT 50 U/L (14-59); AST 19 U/L (15-37); Albumin 2.9 g/dL (3.4-5.0); Alkaline Phosphatase 169 U/L (46-116); Anion Gap 11.3 mmol/L (3-11); BUN 27 mg/dL (7-18); Bilirubin, Total 0.4 mg/dL (0.2-1.0); CO2 19.7 mmol/L (21.0-32.0); CREATININE 1.51 mg/dL (0.55-1.02); Calcium 8.8 mg/dL (8.5-10.1); Chloride 109 mmol/L (98-107); Estimated GFR 35.03 (mL/min/1.73m2); Glucose 104 mg/dL (74-106); Lipase 132 U/L (73-393); Potassium 4.3 mmol/L (3.5-5.1); Sodium 140 mmol/L (136-145); Total Protein 6.9 g/dL (6.4-8.2)
--- NOTE | 2020-04-15 14:40 | DI.CT_ITS ---
EXAM: CT RENAL COLIC WO CLINICAL HISTORY: R flank pain. TECHNIQUE: Imaging Protocol: Axial computed tomography images with coronal and sagittal reformatted images were created and reviewed. CONTRAST MATERIAL: Noncontrast COMPARISON: CT NECK AND CHEST WITH CONTRAST from 12/08/2012 FINDINGS: Exam is limited by lack of IV and oral contrast as well as patient body habitus. ABDOMEN: Lung Bases: Minimal nonspecific densities at the right lung base. Questionable irregular thickenin g at the diaphragm. Liver: enlarged , mild fatty infiltration.. Vague area of decreased attenuation highly suspicious fo r a liver mass. Approximate dimensions 6 to 7 centimeters in the superior right lobe. Gallbladder and biliary tract: Status post cholecystectomy. Pancreas: Normal density, no calcifications or inflammatory process. Spleen: Normal. Kidneys: Normal size, contour and axis. No radiodense stones or obstructive uropathy. No masses seen. Adrenal glands: No masses seen. Abdominal Aorta: Abdominal portion non-dilated. Atherosclerotic changes. PELVIS: Bladder: Symmetric distention, no gross wall thickening. Bowel: No obstruction or bowel wall thickening. Peritoneal cavity: No ascites, collection or mesenteric inflammatory response.Normal appendix. Reproductive: Status post hysterectomy. Bones: Advanced degenerative disc and facet degenerative changes. IMPRESSION: Large area of decreased attenuation in the right lobe the liver, suspicious for primary or metastatic liver lesion. thickening near the diaphragm which could indicate carcinomatosis or serosal neoplas tic seeding. RADIATION DOSE DELIVERED: 1,070.25mGy.cm Total DLP DATA REPOSITORY: All CT scans at this facility are submitted to the National Radiology Data Registry (NRDR) Dose Index Registry (DIR) with the [employer] (ACR). RADIATION OPTIMIZATION: All CT scans at this facility use at least one of these dose optimization te chniques: automated exposure control; mA and/or kV adjustment per patient size (includes targeted exa ms where dose is matched to clinical indication); or iterative reconstruction.
[2020-04-15] MEDS: Normal Saline 1,000 ML 1000 ML IV (14:44)
[2020-04-15] MEDS: Normal Saline Flush 10 ML SYR IVP (14:49)
--- NOTE | 2020-04-15 14:57 | DI.VRAD_ITS ---
PROCEDURE INFORMATION: Exam: CT Abdomen And Pelvis Without Contrast Exam date and time: 04/15/2020 2:34 PM Age: 60 years old Clinical indication: Other: R flank pain TECHNIQUE: Imaging protocol: Computed tomography of the abdomen and pelvis without contrast. Radiation optimization: All CT scans at this facility use at least one of these dose optimization techniques: automated exposure control; mA and/or kV adjustment per patient size (includes targeted exams where dose is matched to clinical indication); or iterative reconstruction. COMPARISON: US ABDOMEN ULTRASOUND (P) 08/17/2013 3:29 PM FINDINGS: Lungs: Mild ground-glass change seen at the right lung base. Liver: There is a large low-density mass in the right lobe of the liver measuring up to 5.9 cm extending to the level of the caudate lobe. There may be a 2nd posterior segment right lobe lesion at the dome level, less than 2 cm. There appears to be some thickening of the right hemidiaphragm versus hepatic serosal thickening at the dome level versus infiltrative process. The hepatic dome is not completely included on the exam but there is hepatomegaly. Gallbladder and bile ducts: Status post cholecystectomy. Pancreas: Normal. No ductal dilation. Spleen: Normal. No splenomegaly. Adrenal glands: Normal. No mass. Kidneys and ureters: Normal. No hydronephrosis. Stomach and bowel: Unremarkable. No obstruction. No mucosal thickening. Appendix: The appendix is well seen, within normal limits. Intraperitoneal space: Unremarkable. No free air. No significant fluid collection. Vasculature: Moderate atherosclerotic change seen in the vasculature. Lymph nodes: There is are right-sided epicardial lymph node, 7 mm. Urinary bladder: The bladder is not well distended. Reproductive: Status post hysterectomy. Bones/joints: Moderate to severe lumbar spondylosis. Soft tissues: Unremarkable. IMPRESSION: 1. Hepatic mass, primary versus metastatic neoplastic process of concern. 2. There appears to be some neoplastic seeding of either the hepatic serosa, right hemidiaphragm or both suggesting a degree of carcinomatosis. Dictated and Authenticated by: Merari Rodriguez MD. Ordering:DAVID Tavares MD
--- NOTE | 2020-04-15 15:17 | NUR.NOTE ---
Nursing Note: Referral faxed to PCP for [facility] follow up. Natty Pack
[2020-04-15 15:53] VITALS: BP 179/90; PULSE 60; RESP 18; TEMP 36.1; O2SAT 100
== END 2020-04-15 15:55 | disposition home or self-care (01) ==
PROVIDERS: Emergency Provider Emergency Medicine; PCP Family Medicine
DX: R93.2 Abnormal findings on diagnostic imaging of liver and biliary tract (principal); I10 Essential (primary) hypertension
CPT/HCPCS: 36415; 80053; 83690; 96361; 96374; 99284; 74176; 81003; 81015; 85025; J1885

== ENCOUNTER 2020-04-27 04:57 | Outpatient (CLI) | payer OTHER, SELFPAY ==
[2020-04-27 11:43] LABS: Abs Immature Grans 0.04 10^3/uL (0.0-0.06); Absolute Basophil Count 0.03 10^3/uL (0.0-0.2); Absolute Lymphocyte Count 1.05 10^3/uL (1.2-3.4); Absolute Monocyte Count 0.66 10^3/uL (0.1-0.8); Absolute Neutrophil Count 8.17 10^3/uL (1.2-6.7); Basophils % 0.3; Immature Grans % 0.4; Lymphocytes % 10.3; MCH 28.8 pg (27.0-33.0); MCHC 31.6 % (32.0-36.0); MCV 91.3 fL (80-95); MPV 10.4 fL (8.0-11.0); Monocytes % 6.5; Neutrophils % 80.5; Nucleated RBC 0 %; Platelet Count 256 10^3/uL (130-400); RBC 4.16 10^6/uL (3.93-5.22); RDW 14.2 % (11.7-14.6); RDW-SD 48.2 fL; WBC 10.15 10^3/uL (4.4-10.8)
[2020-04-27 11:53] LABS: Prothrombin Time 10.1 sec (9.3-11.0)
[2020-04-27 12:48] LABS: Iron 47 ug/dL (50-170); Total Iron Binding Capacity 224 ug/dL (250-450); Transferrin Sat 21 % (15-50)
[2020-04-27 15:02] LABS: ALT 32 U/L (14-59); AST 20 U/L (15-37); Albumin 3.1 g/dL (3.4-5.0); Alkaline Phosphatase 146 U/L (46-116); Anion Gap 5.3 mmol/L (3-11); BUN 22 mg/dL (7-18); Bilirubin, Total 0.3 mg/dL (0.2-1.0); CO2 25.7 mmol/L (21.0-32.0); CREATININE 1.62 mg/dL (0.55-1.02); Calcium 9.1 mg/dL (8.5-10.1); Chloride 106 mmol/L (98-107); Ferritin 365 ng/mL (8-252); Glucose 92 mg/dL (74-106); Potassium 5.7 mmol/L (3.5-5.1); Sodium 137 mmol/L (136-145); Total Protein 6.6 g/dL (6.4-8.2)
[2020-04-27 18:13] LABS: CEA 17.4 ng/mL (See Note)
[2020-04-28 08:18] LABS: AFP Tumor Marker 2.6 ng/mL (<8.1)
[2020-04-28 09:19] LABS: Hepatitis B Surface Ag Negative (Negative)
[2020-04-28 10:20] LABS: Hep B Core Antibody Negative (Negative)
[2020-04-28 10:33] LABS: CA 19-9 242 U/mL (<35)
== END 2020-04-27 05:17 ==
PROVIDERS: PCP Family Medicine; Visit Provider Internal Medicine Gastroenterology
DX: R16.0 Hepatomegaly, not elsewhere classified (principal); K76.89 Other specified diseases of liver
CPT/HCPCS: 36415; 80053; 86704; 87340; 82105; 82378; 82728; 83540; 83550; 85025; 85610; 86301

== ENCOUNTER 2020-05-02 02:19 | Outpatient (CLI) | payer OTHER, SELFPAY ==
--- NOTE | 2020-05-02 15:19 | DI.MAMMO_ITS ---
EXAM: MAMMO SCREENING CLINICAL HISTORY: screening,z12.39 TECHNIQUE: Mammograms were interpreted according to the usual protocol including computer analysis w [employer] CAD system, tomosynthesis and C-view imaging. COMPARISON: 2010 through 2017 FINDINGS: The breasts are composed of scattered fibroglandular densities, Breast Density category B. No suspicious masses or suspicious microcalcifications are seen. No skin thickening or abnormal axillary lymph nodes are seen. There has been no significant change from prior exams. IMPRESSION: BI-RADS Category 1, Negative mammogram Yearly screening mammography is recommended. Breast Density - Category B, scattered fibroglandular densities. A negative radiographic report should not delay biopsy if a dominant or clinically suspicious mass is present. Up to ten percent of cancers are not identified on mammography. A negative report may reinforce clinical impression. Adenosis and dense breasts may obscure an underlying neoplasm. False positive reports average 6 to 10%. Patient will receive a letter notifying them of these results.
== END 2020-05-02 02:39 ==
PROVIDERS: PCP Family Medicine; Visit Provider Family Medicine
DX: Z12.31 Encounter for screening mammogram for malignant neoplasm of breast (principal)
CPT/HCPCS: 77063; 77067

== ENCOUNTER 2020-05-10 18:42 | Emergency (ER) | payer OTHER, SELFPAY ==
[2020-05-10 18:50] VITALS: BP 192/82; PULSE 109; RESP 20; TEMP 36.7; O2SAT 95
--- NOTE | 2020-05-10 19:12 | ED.GENADUL_ITS ---
Discharge Plan Disposition Patient Disposition: HOME Condition: Stable Discharge Details Clinical Impression: Abdominal pain, Anxiety about health Primary Care Provider: Messi García ED Provider: Bertha Shay Home Meds and New Rx's Prescriptions: Continued Otezla 30 mg tablet 30 mg PO BID RF: 0 tramadol 50 mg tablet 50 mg PO Q6H PRN (Reason: pain) Qty: 30 RF: 0 levothyroxine 200 mcg tablet 200 mcg PO As Dirrected Qty: 36 RF: 4 Flucelvax Quad [id number] 60 mcg (15 mcg x 4)/0.5 mL suspension 0.5 ml IM ONCE Qty: 0.5 RF: 0 oxybutynin chloride 15 mg tablet extended release 24hr 15 mg PO DAILY Qty: 90 RF: 4 cyanocobalamin (vitamin B-12) [Vitamin B-12] 1,000 MCG tablet extended release 1,000 mcg PO 3X/WEEK Qty: 36 RF: 4 senna 8.6 MG capsule 1 tab-cap PO BID PRNRF: 0 triamcinolone acetonide 15 GM cream 0 Topical BID Qty: 30 RF: 3 fluocinonide 60 GM ointment 0 Topical BID PRNQty: 60 RF: 4 indomethacin 50 mg capsule 50 mg PO TID PRN (Reason: gout attack) Qty: 30 RF: 0 lithium carbonate 600 mg capsule 600 mg PO DAILY Qty: 90 RF: 4 amiloride 5 mg tablet 5 mg PO DAILY Qty: 90 RF: 3 atorvastatin [Lipitor] 40 mg tablet 40 mg PO QPM Qty: 90 RF: 4 levothyroxine 175 mcg tablet 175 mcg PO as directed Qty: 90 RF: 3 cimetidine 800 mg tablet 800 mg PO BID Qty: 180 RF: 4 venlafaxine 75 mg capsule,extended release 24hr 75 mg PO DAILY Qty: 90 RF: 3 lithium carbonate 150 mg capsule 150 mg PO DAILY Qty: 90 RF: 4 Latuda 20 mg tablet 20 mg PO DAILY Qty: 30 RF: 2 clonazepam 0.5 mg tablet 0.5 mg PO BID Qty: 60 RF: 0 acetaminophen [Tylenol] 325 mg Tablet 325 - 650 mg PO Q4H PRN PRNQty: 0 RF: 0 Discharge Instructions Instructions: Abdominal Pain (ED), Anxiety (ED) Additional Instructions: Follow up with primary care provider in 3-5 days. Return to ED sooner if any wor sening or concerns. Increase oral fluids. Take tramadol as previously directed. Your labs today are largely within normal limits or at your baseline. The CT of your chest shows no abnormality to the lung or heart area. You do not need to come tomorrow as previously scheduled for your chest CT as it was done today. Please keep your appointments at [facility] as previously scheduled for next week. Referrals: Messi García [Primary Care Provider] - Medical Decision Making 60 yr old female presents to the ER with chief complaint of abdominal pain, decreased appetite, nausea, weight loss and abdominal bloating. She was seen in the ED on April 15 of this year and diagnosed with a liver mass. She is gett ing follow-up at [facility] and has appointments next week for MRI and further work-up. She reports being given tramadol for her pain by her PCP which she states that she takes sometimes mostly takes Motrin. She reports eating eggs at around noon today and nothing else. She states that once she eats she feels full. She denies any vomiting diarrhea. She does have a history of constipation which she takes senna and laxatives for. She reports some newer pain on the left upper quadrant of the abdomen no fever no chills. At this time we will give IV fluids, 25 mcg of fentanyl, 4 mg of Zofran, and labs ordered including CBC, CMP, lipase and urinalysis. Labs are largely at patient's baseline, no leukocytosis, BUN is 24 creatinine is 1.5 GFR is 35 which is at patient's baseline, alk phos is 163, urine protein 100. 1944: Spoke with patient's friend Juanita who states that patient has a CT of her lungs tomorrow, will check with radiology to confirm this. She does reconfirm that next Friday she has biopsy at [facility], and then following that an MRI of her abdomen. She is concerned for patient's increased anxiety due to her bipolar, OCD, and anxiety with recent changes to her clonazepam. 2005: Did confirm with radiology that patient has an appointment at 11:[address] of her her chest without contrast order placed and I will notify patient she does not have to come in again tomorrow. At this time I do feel that this is more anxiety related to the diagnosis of liver mass in the upcoming appointments along with patient psych history of bipolar, OCD, and anxiety with recent changes to her medications have compounded each other. Patient remained hemodynamically stable throughout stay discuss strict return instructions, patient verbalized understanding. CT chest W/O FINDINGS: Lungs: Subsegmental atelectasis or scarring in the medial and posterior basal right lower lobe. Pleural spaces: Unremarkable. No pneumothorax. No pleural effusion. Heart: Unremarkable. No cardiomegaly. No pericardial effusion. Aorta: Unremarkable. No aortic aneurysm. Lymph nodes: Unremarkable. No enlarged lymph nodes. Liver: Large ill-defined hypodensity centrally within the liver. Bones/joints: Endplate degenerative spurring throughout the thoracic spine. No acute fracture or focal suspicious osseous lesion. Mild right and moderate left glenohumeral joint degenerative changes. Shoulder joint effusion on left contains a calcified intra-articular body. Soft tissues: Unremarkable. IMPRESSION: 1. No acute cardiopulmonary abnormality. 2. Large central liver mass. 3. Moderate left glenohumeral joint degenerative disease and joint effusion with an intra-articular body. 4. Multilevel thoracic spondylosis HPI General Mode of arrival: ambulatory . Date/Time Provider Initiated Documentation: 05/10/20 18:43 . Limitations to Documentation: no limitations . Information obtained by: patient . HPI Narrative: 60-year-old female presents to the ER with chief complaint of abdominal pain, decreased appetite, nausea, weight loss and abdominal bloating. She was seen in the ED on April 15 of this year and diagnosed with a liver mass. She is getting follow-up at [facility] and has appointments next week for MRI and further work-up. She reports being given tramadol for her pain by her PCP which she states that she takes sometimes mostly takes Motrin. She reports eating eggs at around noon today and nothing else. She states that once she eats she feels full. She denies any vomiting diarrhea. She does have a history of constipation which she takes senna and laxatives for. She reports some newer pain on the left upper quadrant of the abdomen no fever no chills. Related Data Home Medications Medication Instructions Recorded Confirmed cyanocobalamin (vitamin B-12) 1,000 mcg PO 3X/WEEK #36 08/21/12 05/10/20 [Vitamin B-12] senna 1 tab-cap PO BID PRN tab-cap 03/06/15 05/10/20 triamcinolone acetonide 0 TOPICAL BID #30 g 09/07/15 04/26/20 fluocinonide 0 TOPICAL BID PRN #60 g 11/28/15 04/26/20 apremilast 30 mg tablet 30 mg PO BID 05/12/18 05/10/20 acetaminophen [Tylenol] 325 - 650 mg PO Q4H PRN PRN #0 tab 06/25/18 05/10/20 indomethacin 50 mg capsule 50 mg PO TID PRN #30 cap 12/22/18 05/10/20 lithium carbonate 600 mg capsule 600 mg PO DAILY #90 cap 04/08/19 05/10/20 amiloride 5 mg tablet 5 mg PO DAILY #90 tab-cap 07/26/19 05/10/20 atorvastatin 40 mg tablet 40 mg PO QPM #90 tab 08/31/19 05/10/20 levothyroxine 175 mcg tablet 175 mcg PO as directed #90 tab-cap 09/17/19 05/10/20 cimetidine 800 mg tablet 800 mg PO BID #180 tab 09/28/19 05/10/20 oxybutynin chloride 15 mg 15 mg PO DAILY #90 tab 11/29/19 05/10/20 tablet,extended release 24 hr venlafaxine 75 mg capsule,extended 75 mg PO DAILY #90 tab-cap 12/03/19 05/10/20 release 24 hr lithium carbonate 150 mg capsule 150 mg PO DAILY #90 cap 03/01/20 05/10/20 lurasidone 20 mg tablet 20 mg PO DAILY #30 tab 04/13/20 05/10/20 levothyroxine 200 mcg tablet 200 mcg PO As Dirrected #36 tab-cap 04/18/20 05/10/20 tramadol 50 mg tablet 50 mg PO Q6H PRN #30 tab 04/18/20 05/10/20 clonazepam 0.5 mg tablet 0.5 mg PO BID #60 tab-cap 05/03/20 05/10/20 Previous Rx's Medication Instructions Recorded acetaminophen [Tylenol] 325 - 650 mg PO Q4H PRN PRN #0 tab 06/25/18 indomethacin 50 mg capsule 50 mg PO TID PRN #30 cap 12/22/18 lithium carbonate 600 mg capsule 600 mg PO DAILY #90 cap 04/08/19 amiloride 5 mg tablet 5 mg PO DAILY #90 tab-cap 07/26/19 atorvastatin 40 mg tablet 40 mg PO QPM #90 tab 08/31/19 levothyroxine 175 mcg tablet 175 mcg PO as directed #90 tab-cap 09/17/19 cimetidine 800 mg tablet 800 mg PO BID #180 tab 09/28/19 oxybutynin chloride 15 mg 15 mg PO DAILY #90 tab 11/29/19 tablet,extended release 24 hr venlafaxine 75 mg capsule,extended 75 mg PO DAILY #90 tab-cap 12/03/19 release 24 hr lithium carbonate 150 mg capsule 150 mg PO DAILY #90 cap 03/01/20 lurasidone 20 mg tablet 20 mg PO DAILY #30 tab 04/13/20 levothyroxine 200 mcg tablet 200 mcg PO As Dirrected #36 tab-cap 04/18/20 tramadol 50 mg tablet 50 mg PO Q6H PRN #30 tab 04/18/20 clonazepam 0.5 mg tablet 0.5 mg PO BID #60 tab-cap 05/03/20 Allergies Allergy/AdvReac Type Severity Reaction Status Date / Time Cephalosporins Allergy Unknown Verified 05/10/20 19:10 haloperidol Allergy Unknown Verified 05/10/20 19:10 indomethacin AdvReac Intermediate dizziness Verified 05/10/20 19:10 quetiapine AdvReac Intermediate RLS Verified 05/10/20 19:10 Butyrophenones AdvReac Unknown Verified 05/10/20 19:10 thioridazine AdvReac Unknown Verified 05/10/20 19:10 General Stated Complaint: Abd Prob SONJA: 3 Review of Systems Narrative: Constitutional: Negative for weight loss, alert and oriented, well groomed, obese body habitus, appears comfortable. She is tearful upon initial exam. HEENT: Denies trauma, headaches, blurry vision, nasal discharge, sore throat, trouble swallowing. Chest: Denies chest pain, palpitations, irregular rhythm, hypertension. Respiratory: Denies Shortness of breath, cough, hemoptysis. GI: Denies vomiting, diarrhea, positive abdominal pain, nausea, constipation. : Denies dysuria, hematuria, flank pain, rectal bleeding. Neuro: Denies dizziness, blurry vision, weakness, syncope, headache or facial numbness. Hematologic: Denies easy bruising, intolerance to heat or cold, hair loss. [facility] Medical History Bilateral impacted cerumen Bipolar I disorder lithium therapy Cardiac murmur (03/06/03) Chronic renal impairment (02/17/13) Essential hypertension (02/17/13) Expressive aphasia Gout (02/17/13) Hiatal hernia Hidradenitis History of tobacco use Hyperlipidemia (12/02/12) Hypertensive retinopathy of both eyes, grade 1 Hypothyroidism (acquired) Knee pain, chronic left Lichen sclerosus et atrophicus (03/12/12) Sage use Mixed conductive and sensorineural hearing loss of right ear with restricted hearing of left ear (12/31/16) Obesity Overactive bladder (10/03/17) Psoriasis (03/13/17) Rosacea Sciatica Spinal stenosis Sprain of sacroiliac ligament Stasis dermatitis of both legs Tinnitus of both ears (11/11/13) Venous insufficiency of both lower extremities Surgical History Abdominal hysterectomy (~2002) DUB/uterus only removed Arthroplasty of knee B/L Bilateral salpingectomy with oophorectomy (~2002) Cholecystectomy Dilation and curettage EXOSTECTOMY 02/03/15-DORSUM OF LEFT FOOT History of arthroscopy of knee History of bilateral salpingo-oophorectomy History of mastoidectomy MASTOIDECTOMY and tympanoplasty Open Carpal Tunnel release B/L SALIVARY SURGERY salvitory gland infected and removed Status post carpal tunnel release Status post cholecystectomy Status post dilation and curettage Status post foot surgery Status post total abdominal hysterectomy and bilateral salpingo-oophorectomy VOCAL CORD SURGERY cord polyp removed Family History Mother Diabetes Essential hypertension Depression Heart disease Hyperlipidemia Stroke Father Essential hypertension Heart disease Hyperlipidemia Sister Depression Brother Depression Brother No problems noted. 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 Appears stated age. Obese body habitus. Head: Normocephalic, no trauma. Eyes: Pupils PERRLA, Red reflex noted, EOM's intact. Eyelids symmetrical without lesions, discharge, or swelling. ENT: Bilateral TM's WNL, External ear normal to inspection, no mastoid TTP, swelling, or erythema, Nasal turbinates WNL, no nasal discharge. Normal dentition, Posterior pharynx WNL, no exudate. Chest: RRR, Normal S1, S2, distal pulses intact. Resp: Lungs clear to auscultation bilaterally, no wheezes, rales, or rhonchi. Abdomen: Soft, right CVA tenderness, right upper quadrant and left upper quadrant tenderness with palpation. Musculoskeletal: Normal gait, 5/5 strength to all four extremities. Skin: No suspicious rashes or lesions. Capillary refill less than 2 sec. Neurologic: Cranial nerves II-XII intact. Alert and oriented x 3. DTR's intact. Hematologic/Lymphatic: No ecchymosis, no lymphadenopathy. Course Vital Signs Vital signs: Vital Signs Temperature 36.7 C 05/10/20 18:50 Pulse 109 H 05/10/20 18:50 Respiratory Rate 20 05/10/20 18:50 Blood Pressure 192/82 H 05/10/20 18:50 Pulse Oximetry 95 05/10/20 18:50 Temperature 36.7 C 05/10/20 18:50 Temperature Source Oral 05/10/20 18:50 Pulse 109 H 05/10/20 18:50 Respiratory Rate 20 05/10/20 18:50 Blood Pressure 192/82 H 05/10/20 18:50 Blood Pressure Position Sitting 05/10/20 18:50 Pulse Oximetry 95 05/10/20 18:50 Oxygen Delivery Method Room Air 05/10/20 18:50 Oxygen Flow Rate 0 05/10/20 18:50 Pain Level 5 05/10/20 18:50
[2020-05-10 19:31] LABS: Abs Immature Grans 0.04 10^3/uL (0.0-0.06); Absolute Basophil Count 0.02 10^3/uL (0.0-0.2); Absolute Eosinophil Count 0.13 10^3/uL (0.0-0.7); Absolute Lymphocyte Count 1.11 10^3/uL (1.2-3.4); Absolute Monocyte Count 0.54 10^3/uL (0.1-0.8); Basophils % 0.2; Eosinophils % 1.4; HCT 37.3 % (36.0-46.0); Immature Grans % 0.4; MCH 28.5 pg (27.0-33.0); MCHC 32.2 % (32.0-36.0); MCV 88.6 fL (80-95); MPV 10.2 fL (8.0-11.0); Monocytes % 5.8; Neutrophils % 80.2; Nucleated RBC 0 %; Platelet Count 297 10^3/uL (130-400); RBC 4.21 10^6/uL (3.93-5.22); RDW 13.8 % (11.7-14.6); RDW-SD 44.8 fL; WBC 9.24 10^3/uL (4.4-10.8)
[2020-05-10] MEDS: Normal Saline 1,000 ML 1000 ML IV (19:31)
[2020-05-10 19:32] LABS: Bilirubin Negative (Negative); Blood Negative (Negative); Clarity Clear (Clear); Glucose Negative (Negative); Ketones Negative (Negative); Leukocyte Esterase Negative (Negative); Nitrite Negative (Negative); Urobilinogen 0.2 EU/dL (Up TO 0.2)
[2020-05-10] MEDS: Ondansetron 4 MG/2 ML VIAL IVP (19:32)
[2020-05-10] MEDS: fentaNYL 100 MCG/2 ML VIAL 25 MCG IVP (19:34)
[2020-05-10 19:41] LABS: Bacteria Rare HPF (Negative); C & S Indicated? No; Crystals Negative HPF (Negative); Epithelial Cells Many HPF (Negative); Mucus Negative (Negative); RBC Negative HPF (0-2); WBC 0-2 HPF (0-5)
[2020-05-10 19:44] LABS: ALT 55 U/L (14-59); AST 26 U/L (15-37); Albumin 3.2 g/dL (3.4-5.0); Alkaline Phosphatase 163 U/L (46-116); Anion Gap 10.7 mmol/L (3-11); BUN 24 mg/dL (7-18); Bilirubin, Total 0.3 mg/dL (0.2-1.0); CO2 23.3 mmol/L (21.0-32.0); CREATININE 1.5 mg/dL (0.55-1.02); Calcium 9.8 mg/dL (8.5-10.1); Chloride 106 mmol/L (98-107); Glucose 103 mg/dL (74-106); Lipase 114 U/L (73-393); Magnesium 2.2 mg/dL (1.8-2.4); Potassium 4.1 mmol/L (3.5-5.1); Sodium 140 mmol/L (136-145); Total Protein 7.6 g/dL (6.4-8.2)
--- NOTE | 2020-05-10 20:15 | DI.CT_ITS ---
EXAM: CT CHEST WO CLINICAL HISTORY: increased pain, R/O metastatic disease. TECHNIQUE: Imaging protocol: Axial computed tomography images were obtained and coronal and sagittal reformatted images were created and reviewed. COMPARISON: CT CT RENAL COLIC WO from 04/15/2020 FINDINGS: Tracheobronchial tree: Patent where visualized. Pulmonary parenchyma: Subsegmental atelectasis or scarring is seen in the right lower lobe. No archi tectural distortion. Mediastinum and Antonina: No dominant adenopathy or fluid collection. Pleura: No effusion or pneumothorax. Heart: Mild cardiomegaly. Mild coronary artery calcification. No pericardial effusion. Aorta: Thoracic aorta non-dilated. Mild atherosclerosis. Upper abdomen: The hepatic mass appears unchanged compared to the prior examination. Lymph nodes: Within normal limits. Soft tissues: Unremarkable. Bones:Degenerative changes. No suspicious lytic or sclerotic lesions. IMPRESSION: 1. No acute pulmonary process. 2. Stable liver mass. RADIATION DOSE DELIVERED: 515.8mGy.cm Total DLP 515.8mGy.cm Total DLP DATA REPOSITORY: All CT scans at this facility are submitted to the National Radiology Data Registry (NRDR) Dose Index Registry (DIR) with the [employer] (A[employer]). RADIATION OPTIMIZATION: All CT scans at this facility use at least one of these dose optimization te chniques: automated exposure control; mA and/or kV adjustment per patient size (includes targeted exa ms where dose is matched to clinical indication); or iterative reconstruction.
--- NOTE | 2020-05-10 20:35 | DI.VRAD_ITS ---
PROCEDURE INFORMATION: Exam: CT Chest Without Contrast; Diagnostic Exam date and time: 05/10/2020 8:07 PM Age: 60 years old Clinical indication: Shortness of breath; Chest pain; Type not specified; Patient HX: Diagnosed with liver tumor 1 month ago, increased pain, R/O metastatic disease TECHNIQUE: Imaging protocol: Diagnostic computed tomography of the chest without contrast. Radiation optimization: All CT scans at this facility use at least one of these dose optimization techniques: automated exposure control; mA and/or kV adjustment per patient size (includes targeted exams where dose is matched to clinical indication); or iterative reconstruction. COMPARISON: CR XR CHEST 2V PA LATERAL 09/14/2018 3:01 PM FINDINGS: Lungs: Subsegmental atelectasis or scarring in the medial and posterior basal right lower lobe. Pleural spaces: Unremarkable. No pneumothorax. No pleural effusion. Heart: Unremarkable. No cardiomegaly. No pericardial effusion. Aorta: Unremarkable. No aortic aneurysm. Lymph nodes: Unremarkable. No enlarged lymph nodes. Liver: Large ill-defined hypodensity centrally within the liver. Bones/joints: Endplate degenerative spurring throughout the thoracic spine. No acute fracture or focal suspicious osseous lesion. Mild right and moderate left glenohumeral joint degenerative changes. Shoulder joint effusion on left contains a calcified intra-articular body. Soft tissues: Unremarkable. IMPRESSION: 1. No acute cardiopulmonary abnormality. 2. Large central liver mass. 3. Moderate left glenohumeral joint degenerative disease and joint effusion with an intra-articular body. 4. Multilevel thoracic spondylosis. Dictated and Authenticated by: Roldan Gonzalez MD. Ordering:CHICO Stone MD
[2020-05-10 20:40] VITALS: BP 193/82; PULSE 65; RESP 18; O2SAT 97
== END 2020-05-10 21:11 | disposition home or self-care (01) ==
PROVIDERS: Emergency Provider Registered Nurse Emergency; PCP Family Medicine
DX: F41.8 Other specified anxiety disorders (principal); R10.12 Left upper quadrant pain; R68.81 Early satiety
CPT/HCPCS: 36415; 71250; 80053; 83690; 96361; 96374; 96375; 99285; 81003; 81015; 83735; 85025; 99284; J2405; J3010

== ENCOUNTER 2020-07-08 11:59 | Outpatient (REF) | payer OTHER, SELFPAY ==
[2020-07-08 12:40] LABS: Bilirubin Negative (Negative); Blood Negative (Negative); Clarity Sl Cloudy (Clear); Glucose Negative (Negative); Ketones Negative (Negative); Leukocyte Esterase Negative (Negative); Nitrite Negative (Negative); Urobilinogen 0.2 EU/dL (Up TO 0.2); pH 5.5 (5-8)
== END 2020-07-08 12:00 | disposition home or self-care (01) ==
LOC: LBN 11:59
PROVIDERS: PCP Family Medicine; Visit Provider Family Medicine
DX: R30.0 Dysuria (principal)
CPT/HCPCS: 81003